=== PATIENT | female | born 1990 | race Caucasian/White ===

== ENCOUNTER 2022-09-04 12:15 | Outpatient (CLI) | payer MEDICAID, SELFPAY ==
[2022-09-04 09:22] LABS: Cholesterol* 206 mg/dL (90-199)
[2022-09-04 09:23] LABS: Glucose* 97 mg/dL (60-115); HDL Cholesterol* 42 mg/dL (>=50); LDL Cholesterol Calculated 142 mg/dL (<100); Triglycerides* 110 mg/dL (40-149)
== END 2022-09-04 12:16 | disposition home or self-care (01) ==
PROVIDERS: Visit Provider Family Medicine
DX: Z13.6 Encounter for screening for cardiovascular disorders (principal); Z13.1 Encounter for screening for diabetes mellitus
CPT/HCPCS: 80061; 82947

== ENCOUNTER 2022-09-09 23:40 | Emergency (ER) | payer MEDICAID, SELFPAY ==
[2022-09-09 23:57] VITALS: BP 117/85; PULSE 86; RESP 18; TEMP 36.5; O2SAT 96; BMI 27.4
--- NOTE | 2022-09-10 00:18 | CRLHL7_ITS ---
For Patients: As a result of the Century Cures Act, medical imaging exams and procedure reports are released immediately into your electronic medical record. You may view this report before your referring provider. If you have questions, please contact your health care provider. INDICATION: Right upper quadrant abdominal pain. TECHNIQUE: Ultrasound abdomen limited. Sonographic images of the right upper quadrant were obtained using escobar-scale and color Doppler images. COMPARISON: None. FINDINGS: Liver: Normal in size and echotexture. No suspicious masses. No intrahepatic biliary ductal dilatation. Gallbladder: Small mobile stones. Normal wall thickness. No pericholecystic fluid. Negative sonographic Lomax`s sign. Common bile duct: 5 mm. Pancreas: Unremarkable. Right kidney: Normal in size. Normal echotexture and cortex. No suspicious masses, stones, or hydronephrosis. Vasculature: Proximal abdominal aorta and IVC are unremarkable. IMPRESSION: 1. Cholelithiasis without evidence of cholecystitis. 2. Remainder of right upper quadrant ultrasound is unremarkable. Dictated by El Hall MD @ 09/10/2022 1:30:03 AM (Electronically Signed)
--- NOTE | 2022-09-10 00:23 | ED_ITS ---
HPI - General Adult General Chief complaint: Neck Injury/Pain Stated complaint: Pain on right side/neck, trouble breathing Time Seen by Provider: 09/09/22 23:54 Source: patient Mode of arrival: ambulatory Limitations: no limitations History of Present Illness HPI narrative: With no prior history of gallbladder disease or pancreatitis and no family history of gallbladder disease presents with vague right shoulder and neck ache for the past 12 hours. It radiates into the right upper quadrant of the abdomen. She reports fever over the weekend though she did not localize the source. She has had anorexia through the day, no tim nausea or vomiting. She admits that she has been quite distracted by a Halloween and needing to take her children on outings. No blood in her stools, no blood in her urine. No d iarrhea. She states that she has had half of 1 alcoholic beverage in the last few days, no excessive use of alcohol. No injury or trauma to the neck or shoulder. Pain is worsened by taking deep breaths, specifically making the pain worse in the right upper quadrant. Denies chance of . Has tried taking Tylenol x2 with some mild temporary improvement in her pain. Reports that the pain is worsening significantly in the last few hours. Prior history of similar episodes. Past medical history notable for depression and anxiety, also reports a remote history of ulcerative colitis but not on any treatment.. She reports that she is prescribed fluoxetine by a Psychiatry in the past and has been out of this as her provider moved on to a new practice rather quickly. She has upcoming appointment with her primary care provider to restart this medication soon. Denies any prior surgeries. No family history of gallbladder or significant GI disease. Socially, she is a smoker, denies significant alcohol use, pertinent travel. She denies any personal or family history of anesthesia complications, no personal or family history of bleeding or blood clotting disorders. Does not take anticoagulants. ROS is notable for the musculoskeletal and GI symptoms as described above, otherwise denies times 12 systems today. Related Data Home Medications Medication Instructions Recorded Confirmed fluoxetine 20 mg capsule mg PO DAILY 09/09/22 Allergies Allergy/AdvReac Type Severity Reaction Status Date / Time No Known Drug Allergies Allergy Verified 09/05/22 12:32 [facility] Medical History (Updated 09/10/22 @ 02:37 by Selina Arellano MD) Depression with anxiety Ulcerative colitis Social History Smoking Status: Current every day smoker What tobacco products do you use: cigarettes How often do you have a drink containing alcohol: monthly or less AUDIT-C Alcohol total score: 1 Non-prescribed substance use: denies use Exam Const: Vital Signs, click to edit/add: Vital Signs - 24 hr 09/09/22 23:57 Temperature 97.7 F Pulse Rate [Pulse Oximeter] 86 Respiratory Rate 18 Blood Pressure [Le ft Upper Arm] 117/85 Pulse Oximetry 96 Oxygen Delivery Me thod Room Air Documenting provider has reviewed patient's vital signs: yes Common normals: no apparent distress General appearance: cooperative, comfortable and well kempt HENMT: Common normals: normocephalic Head and scalp: normocephalic Mouth: oral and palatal mucosa normal Throat: posterior oropharynx normal Eye: Common normals: PERRL, conjunctivae normal and no scleral icterus Conjunctiva: conjunctiva(e) normal Pupil: PERRL Neck & C-Spine: Common normals: full ROM, no lymphadenopathy, supple and thyroid normal Thyroid: thyroid normal Resp: Common normals: normal respiratory effort, no use of accessory muscles and clear to auscultation bilaterally Effort & inspection: able to speak in complete sentences Auscultation: clear to auscultation bilaterally Cardio: Common normals: regular rate, regular rhythm, S1 normal heart sound, S2 normal heart sound, no murmurs and peripheral pulses 2+ throughout Rate: regular rate Rhythm: regular rhythm Heart sounds: S1 normal and S2 normal Peripheral pulses: pulses 2+ throughout GI: Other: Abdomen appears benign, nondistended. Bowel sounds are normoactive in all 4 quadrants. She is exquisitely tender to the right upper quadrant with some mild guarding. There is no hepatosplenomegaly. No obvious masses or hernias. : Common normals: no CVA tenderness Bladder/kidney exam: no CVA tenderness Back & Pelvis: Common normals: no CVA tenderness and thoracic and lumbar spine normal to inspection Extremity: Common normals: normal to inspection, full ROM and no pedal edema Neuro: Speech: speech normal Motor exam: strength 5/5 throughout, no tremor noted and no movement abnormalities noted Psych: Common normals: thought process normal Appearance: well kempt Attitude: engaged Activity/motor behavior: appropriate eye contact Mood and affect: euthymic mood Thought process: normal thought process Insight: insight good Judgement: judgment good Skin: Common normals: no rashes or lesions noted General skin exam: no rashes or lesions noted Course Vital Signs Vital signs: Initial Vital Signs Temperature 97.7 F 09/09/22 23:57 Temperature Source Temporal Artery Scan 09/09/22 23:57 Pulse Rate 86 09/09/22 23:57 Respiratory Rate 18 09/09/22 23:57 Blood Pressure 117/85 09/09/22 23:57 Blood Pressure Mean 95 09/09/22 23:57 Blood Pressure Position Sitting 09/09/22 23:57 Pulse Oximetry 96 09/09/22 23:57 Oxygen Delivery Method 09/09/22 23:57 Vital Signs Temperature 97.7 F 09/09/22 23:57 Pulse Rate 86 09/09/22 23:57 Respiratory Rate 18 09/09/22 23:57 Blood Pressure 117/85 09/09/22 23:57 Pulse Oximetry 96 09/09/22 23:57 Oxygen Delivery Method 09/09/22 23:57 Temperature 97.7 F 09/09/22 23:57 Pulse Rate 86 09/09/22 23:57 Respiratory Rate 18 09/09/22 23:57 Blood Pressure 117/85 09/09/22 23:57 Pulse Oximetry 96 09/09/22 23:57 Oxygen Delivery Method 09/09/22 23:57 Medical Decision Making MDM Narrative Medical decision making narrative: Stable vital signs reviewed. No signs of sepsis. Strong suspicion for gallbladder disease based on presentation, age, demographics. Request pain management, will place IV, give 0.5 mg of IV Dilaudid and 4 mg of Zofran. Typical laboratory studies to investigate for intra-abdominal concerns as well as urinary and potentially COVID. Right upper quadrant ultrasound ordered. Differential diagnosis also includes pancreatitis, hepatitis, low suspicion for pulmonary embolism, musculoskeletal etiology, colitis or other etiology. Awaiting laboratory studies Update 0240: Pain improved with IV medication, labs reviewed and reassuring. Minimally elevated CRP but normal liver function, normal bilirubin. Ultrasound reviewed, some gallstones are present but no duct dilation, wall thickening or signs of cholecystitis. This is reassuring as well. I do suspect that her symptoms are related to gallstones and/or biliary dyskinesia but there are no signs of significant dysfunction today. She is not endorsing any chest pain, sh ortness of breath, does not have any tachycardia or risk factors for DVT, do not recommend chest CT or further workup regarding her symptoms. Discussed likely gallstone etiology and alarm symptoms that would warrant further workup in followup. She already has a follow-up appointment with her primary care provider within the next couple of days. May need a HIDA scan if she continues to have repeat episodes. Lab Data Lab results reviewed: Yes I reviewed the patient's lab results Labs: Lab Results 09/10/22 09/10/22 09/10/22 Range/Units 00:40 00:40 00:40 WBC 7.60 (4.50-11.00) K/uL RBC 4.63 (4.00-5.20) m/uL Hgb 13.2 (12.0-16.0) gm/dL Hct 39.4 (33.0-51.0) % MCV 85 (80-100) fL MCH 29 (26-34) pg MCHC 34 (32-36) gm/dL RDW Coeff of Luis Enrique 12.5 (11.5-15.5) % Plt Count 379 (140-440) K/uL Neut % (Auto) 50.7 (42.0-72.0) % Lymph % (Auto) 38.9 (20-44) % [place] % (Auto) 8.4 (0.0-11.0) % Eos % (Auto) 1.7 (0.0-7.0) % Baso % (Auto) 0.0 (0.0-3.0) % Neut # (Auto) 3.85 (1.7-7.0) K/uL Lymph # (Auto) 2.96 H (0.90-2.90) K/uL [place] # (Auto) 0.60 (0.00-0.90) K/UL Eos # (Auto) 0.13 (0.00-0.50) K/uL Baso # (Auto) 0.00 (0.00-0.30) K/uL Abs Immat Gran (auto) 0.02 (0.00-0.30) K/uL Sodium 144 (135-149) mmol/L Potassium 3.6 (3.6-5.1) mmol/L Chloride 109 (96-114) mmol/L Carbon Dioxide 21 (20-32) mmol/L BUN 11 (5-24) mg/dL Creatinine 0.7 (0.5-1.5) mg/dL Estimated Creat Clear 92.10 Estimated GFR 119 ml/min Glucose 110 (60-115) mg/dL Calcium 9.0 (8.4-10.6) mg/dL Total Bilirubin 0.2 (0.1-1.5) mg/dL AST 24 (12-35) U/L ALT 21 (4-35) U/L Alkaline Phosphatase 75 (40-150) U/L C-Reactive Protein 3.0 H (0.5-1.0) mg/dL Total Protein 7.7 (6.0-8.3) g/dL Albumin 4.6 (3.3-5.0) g/dL Lipase 81 (23-300) U/L HCG, Qual (Negative) Urine Color (Yellow) Urine Appearance (Clear) Urine pH (5.0-8.5) Ur Specific [place] (1.000-1.030) Urine Protein (Negative) Urine Glucose (UA) (Negative) Urine Ketones (Negative) Urine Blood (Negative) Urine Nitrite (Negative) Urine Bilirubin (Negative) Urine Urobilinogen (0.2-1.0) Ur Leukocyte Esterase (Negative) Urine RBC (0-2) Urine WBC (0-5) Ur Squamous Epith Cells (None-Few) Amorphous Sediment (None) Urine Bacteria (None) SARS-CoV-2 (PCR) Negative SARS-CoV-2 (Negative) Influenza Type A (PCR) Negative PCR FLU A (Negative) Influenza Type B (PCR) Negative PCR FLU B (Negative) RSV (PCR) Negative PCR RSV (Negative) 09/10/22 Range/Units 02:20 WBC (4.50-11.00) K/uL RBC (4.00-5.20) m/uL Hgb (12.0-16.0) gm/dL Hct (33.0-51.0) % MCV (80-100) fL MCH (26-34) pg MCHC (32-36) gm/dL RDW Coeff of Luis Enrique (11.5-15.5) % Plt Count (140-440) K/uL Neut % (Auto) (42.0-72.0) % Lymph % (Auto) (20-44) % [place] % (Auto) (0.0-11.0) % Eos % (Auto) (0.0-7.0) % Baso % (Auto) (0.0-3.0) % Neut # (Auto) (1.7-7.0) K/uL Lymph # (Auto) (0.90-2.90) K/uL [place] # (Auto) (0.00-0.90) K/UL Eos # (Auto) (0.00-0.50) K/uL Baso # (Auto) (0.00-0.30) K/uL Abs Immat Gran (auto) (0.00-0.30) K/uL Sodium (135-149) mmol/L Potassium (3.6-5.1) mmol/L Chloride (96-114) mmol/L Carbon Dioxide (20-32) mmol/L BUN (5-24) mg/dL Creatinine (0.5-1.5) mg/dL Estimated Creat Clear Estimated GFR ml/min Glucose (60-115) mg/dL Calcium (8.4-10.6) mg/dL Total Bilirubin (0.1-1.5) mg/dL AST (12-35) U/L ALT (4-35) U/L Alkaline Phosphatase (40-150) U/L C-Reactive Protein (0.5-1.0) mg/dL Total Protein (6.0-8.3) g/dL Albumin (3.3-5.0) g/dL Lipase (23-300) U/L HCG, Qual Negative (Negative) Urine Color Yellow (Yellow) Urine Appearance Clear (Clear) Urine pH 6.0 (5.0-8.5) Ur Specific [place] 1.020 (1.000-1.030) Urine Protein Negative (Negative) Urine Glucose (UA) Negative (Negative) Urine Ketones Negative (Negative) Urine Blood Negative (Negative) Urine Nitrite Negative (Negative) Urine Bilirubin Negative (Negative) Urine Urobilinogen 0.2 (0.2-1.0) Ur Leukocyte Esterase 1+ A (Negative) Urine RBC 0-2 (0-2) Urine WBC 2-5 (0-5) Ur Squamous Epith Cells Few (None-Few) Amorphous Sediment Few A (None) Urine Bacteria Moderate A (None) SARS-CoV-2 (PCR) (Negative) Influenza Type A (PCR) (Negative) Influenza Type B (PCR) (Negative) RSV (PCR) (Negative) Imaging Data US - abdomen: Radiologist's impression: Gallstones present but no wall thickening or signs of cholecystitis. Discharge Plan Discharge Clinical Impression: Gallstone Patient Disposition: Home, Self-Care Condition: Improved Instructions: Gallstones (ED) Additional Instructions: I suspect that your abdominal pain and referred pain up to the shoulder area are from gallstones. The ultrasound does not show any signs of infection and the blood work is reassuring as well. The blood work also does not show any signs of pancreatitis or liver inflammation. As we discussed, this could also be an early flare up of ulcerative colitis or a sign of a viral infection. Since her vital signs are normal and her lung exam is reassuring, I do not recommend additional workup to look for a blood clot in the lungs. This could be reconsidered if you start to have changing respiratory symptoms. Unfortunately, those that have gallstones may have repeat episodes similar to what you are currently experiencing. I would recommend a bland, diet high in liquids with no alcohol for the next week. If you continue have episodes like this, talked to her primary care provider about getting a HIDA scan to look more closely at the gallbladder function. If your pain worsened significantly and is specially accompanied by vomiting and fevers, this could be a sign of a missed infection and I would want you to come back to the emergency department. For most people, other symptoms improve in 24-48 hours. It is okay to use Tylenol and/or ibuprofen as needed for pain. Okay to return to work and usual activities today. Activity Level: No Restrictions Discharge Diet: Low Fat/Low Cholesterol Prescriptions: No Action fluoxetine 20 mg capsule PO DAILY Label Comments: TAKE 1 CAPSULE BY MOUTH DAILY Follow Up/Referrals: Generic,Amb Provider [Staff Physician] - Stand Alone Forms: [facility] Info Instructions
[2022-09-10] MEDS: ONDANSETRON 2 MG/ML inj 4 MG IVP (00:39)
[2022-09-10] MEDS: HYDROmorphone 0.5 mg/0.5 ml inj IVP (00:39)
[2022-09-10 00:51] LABS: Eosinophils Absolute Auto 0.13 K/uL (0.00-0.50); Eosinophils Percent Auto 1.7 % (0.0-7.0); Hematocrit 39.4 % (33.0-51.0); Hemoglobin* 13.2 gm/dL (12.0-16.0); Immature Granulocytes Abs Auto 0.02 K/uL (0.00-0.30); Lymphocytes Absolute Auto 2.96 K/uL (0.90-2.90); Lymphocytes Percent Auto 38.9 % (20-44); Mean Corpuscular HGB Conc 34 gm/dL (32-36); Mean Corpuscular Hemoglobin 29 pg (26-34); Mean Corpuscular Volume 85 fL (80-100); Monocytes Percent Auto 8.4 % (0.0-11.0); Neutrophils Absolute Auto 3.85 K/uL (1.7-7.0); Neutrophils Percent Auto 50.7 % (42.0-72.0); Platelet Count* 379 K/uL (140-440); RDW Coefficient of Variation % 12.5 % (11.5-15.5); Red Blood Count 4.63 m/uL (4.00-5.20)
--- OUTSIDE RECORDS SUMMARY | 2022-09-10 00:54 | XMS_ITS | Encounter Summary ---
:1990 Author Organization [facility] Address [address] [place] [address] Care Team Providers Name Role Phone Unavailable Primary Care Provider Unavailable Reason for Visit Outpatient (Routine) - Closed Specialty Diagnoses / Procedures Referred By Contact Refer red To Contact Diagnoses Management Contraceptive Saray [facility] Procedures Injection Visit - Depo-Provera [address], [place] [address] Referral ID Status Reason Start Date Expiration Date Visits Requ ested Visits Authorized [id number] Closed 08/09/2021 08/09/2022 1 1 Encounter Details Date Type Department Care Team Description 10/29/2021 Procedure visit Department of Axel Lane M.D. [address] [place] [address] Management Contraceptive (Primary Dx); Obstetrics and Katalina Chong L.P.N. [address] [place] [address] Management Contraceptive [place]necology [address] [place] [id number] Social History Tobacco Use Types Packs/Day Years Used Date Smoking Tobacco: Every Day Cigarettes 0.3 Smokeless Tobacco: Never Tobacco Cessation: Ready to Quit: No; Co unseling Given: Yes Alcohol Use Standard Drinks/Week Comments Not Currently 0 (1 standard drink = 0.6 oz pure alcoho l) Alcohol Habits Answer Date Recorded How often do you have a drink containing alcohol? Monthly or less 08/15/2022 How many drinks containing alcohol do you have on a 1 or 2 08/15/2022 typical day when you are drinking? How often do you have six or more drinks on one Never 08/15/2022 occasion? Social Isolation Answer Date Recorded In a typical week, how many times do you talk on the Once a week 08/15/2022 phone with family, friends, or neighbors? How often do you get together with friends or relatives? Onc e a week 08/15/2022 How often do you attend rastafarian or muslim services? Never 08/15/2022 Do you belong to any clubs or organizations such as No 08/15/2022 rastafarian groups, unions, fraternal or athletic groups, or school groups? How often do you attend meetings of the clubs or Never 08/15/2022 organizations you belong to? Are you now , , , , never Nev er 08/15/2022 or living with a partner? Physical Activity Answer Date Recorded On average, how many days per week do you engage in moderate to 0 days 08/15/2022 strenuous exercise (like walking fast, running, jogging, dancing, swimming, biking, or other activities that cause a light or heavy sweat)? On average, how many minutes do you engage in exercise at th is 0 min 08/15/2022 level? Stress Answer Date Recorded Do you feel stress - tense, restless, nervous, or anxious, o r Very much 08/15/2022 unable to sleep at night because your mind is troubled all the time - these days? Financial Resource Strain Answer Date Recorded How hard is it for you to pay for the very basics like Somew hat hard 08/15/2022 food, housing, medical care, and heating? Intimate Partner Violence Answer Date Recorded Within the last year, have you been afraid of your partner o r Yes 08/15/2022 ex-partner? Within the last year, have you been humiliated or emotionall y Yes 08/15/2022 abused in other ways by your partner or ex-partner? Within the last year, have you been kicked, hit, slapped, or Yes 08/15/2022 otherwise physically hurt by your partner or ex-partner? Within the last year, have you been raped or forced to have any No 08/15/2022 kind of sexual activity by your partner or ex-partner? Food Insecurity Answer Date Recorded Within the past 12 months, you worried that your food Someti mes true 08/15/2022 would run out before you got money to buy more. Within the past 12 months, the food you bought just Sometime s true 08/15/2022 didn't last and you didn't have money to get more. Transportation Needs Answer Date Recorded In the past 12 months, has lack of transportation kept you f rom No 08/15/2022 medical appointments or from getting medications? In the past 12 months, has lack of transportation kept you f rom No 08/15/2022 meetings, work, or getting things needed for daily living? Housing Stability Answer Date Recorded In the last 12 months, was there a time when you were not ab le Yes 08/15/2022 to pay the mortgage or rent on time? In the last 12 months, how many places have you lived? 1 08/15/2022 In the last 12 months, was there a time when you did not hav e a No 08/15/[address] sleep or slept in a correction (including now)? Education Answer Date Recorded What is the highest level of school Bachelor's degree (e.g., BA, AB, 04/13/2021 you have completed or the highest BS) degree you have received? Sex Assigned at Date Recorded Female 08/04/2021 7:52 PM CDT documented as of this encounter Last Filed Vital Signs Vital Sign Reading Time Taken Comments Blood Pressure 114/68 10/29/2021 1:19 PM ADJUSTMENT CLERK Pulse - - Temperature - - Respiratory Rate - - Oxygen Saturation - - Inhaled Oxygen Concentration - - Weight 64.9 kg (143 lb 1.3 oz) 10/29/2021 1:19 PM ADJUSTMENT CLERK Height - - Body Mass Index 25.51 03/07/2021 2:46 PM CDT documented in this encounter Progress Notes Katalina Chong, L.P.N. - 10/29/2021 1:15 PM CST Date of last gynecologic examination from a [facility] prescriber: 08-09-2021 Date of last documented prescription for Depo-Provera?? (Medroxyprogesterone) from a [facility] prescriber: 08-09-2021 Date of last Depo-Provera?? (Medroxyprogesterone) injection: 08-09-2021 Today's date is within injection time frame as ordered by healthcare provider. Patient denies any medical risk factors or concerns regarding medication. Patient instructed to return for injection on/between: January 14- Patient is able to teach back instructions. STMENT CLERK documented in this encounter Plan of Treatment Upcoming Encounters Date Type Specialty Care Team Description 10/08/2022 Office Visit Obstetrics and Gynecology Kamini Lane M.D. [address] [phone] (Wo rk) documented as of this encounter Visit Diagnoses Diagnosis Management Contraceptive - Primary documented in this encounter Administered Medications Inactive Administered Medications - up to 3 most recent administrations Medication Order MAR Action Action Date Dose Rate Site medroxyPROGESTERone Given 07/09/2022 150 mg Right Ventrogluteal injection 150 mg 4:04 PM CDT 150 mg, intramuscular, Every 12 weeks, First dose on 10/29/21 at 1315, For 4 doses Given 04/12/2022 11:33 AM CDT 150 mg Righ t Ventrogluteal Given 01/18/2022 4:10 PM ADJUSTMENT CLERK 150 mg Right Ventrogluteal documented in this encounter Additional Health Concerns Assessment Noted Time PHQ-9 Depression Total Score: 10 08/09/2021 9:11 AM CD T documented as of this encounter
--- OUTSIDE RECORDS SUMMARY | 2022-09-10 00:54 | XMS_ITS | Encounter Summary ---
:1990 Author Organization [facility] Address [address] [place] [address] Care Team Providers Name Role Phone Unavailable Primary Care Provider Unavailable Reason for Referral Outpatient (Routine) - Authorized Specialty Diagnoses / Procedures Referred By Contact Refer red To Contact Obstetrics and Diagnoses High Risk Human Papillomavirus Deoxyribonucleic Acid Test Positive Cervix MARLENE Clayton [facility] Gynecology [place] [address] [place] [phone] Referral ID Status Reason Start Date Expiration Date Visits V isits Requested Authorized [id number] Authorized 08/26/2022 08/25/2025 1 1 Reason for Visit Reason Comments Gynecologic Exam 1yr pap retest Outpatient (Routine) - Closed Specialty Diagnoses / Procedures Referred By Contact Refer red To Contact Obstetrics and Diagnoses High Risk Human Papillomavirus Deoxyribonucleic Acid Test Positive Cervix MARLENE Clayton [facility] Gynecology [place] [address] [place] [address] Referral ID Status Reason Start Date Expiration Date Visits Requ ested Visits Authorized [id number] Closed 08/21/2021 08/21/2022 1 1 Encounter Details Date Type Department Care Team Description 08/19/2022 Office Visit Department of [place], Screening For Venereal Disease (Primary Dx); Obstetrics and [place]ony So High Risk Human Papillomavirus Deoxyribo nucleic Acid Test Positive Cervix; Gynecology in [address] Depressive Dis order; [address] Anxiety; [address] [place] Tobacco [place] [phone] Social History Tobacco Use Types Packs/Day Years Used Date Smoking Tobacco: Every Day Cigarettes 0.3 Smokeless Tobacco: Never Alcohol Use Standard Drinks/Week Comments Not Currently [...] week 08/15/2022 How often do you attend jew or buddhist services? Never 08/15/2022 Do you belong to any clubs or organizations such as No 08/15/2022 jew groups, unions, fraternal or athletic groups, or [...] place to sleep or slept in a assisted (including now)? Education Answer Date Recorded What is the highest level of school Bachelor's degree (e.g., BA, AB, 04/13/2021 you have completed or the highest BS) degree you have received? Sex Assigned at Date Recorded Female 08/04/2021 7:52 PM CDT documented as of this encounter Last Filed Vital Signs Vital Sign Reading Time Taken Comments Blood Pressure 98/64 08/19/2022 2:29 PM CDT Pulse - - Temperature - - Respiratory Rate - - Oxygen Saturation - - Inhaled Oxygen Concentration - - Weight 64.9 kg (143 lb 1.3 oz) 08/19/2022 2:29 PM CDT Height - - Body Mass Index 25.51 03/07/2021 2:46 PM CDT documented in this encounter Progress Notes Jose Clayton M.D. 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 female who presents for follow up of HR HPV. She underwent pap smear on 08/09/2021 and the pap was NILM but HPV testing was positive for HR HPV, not type 16 or 18. I cannot find pap smears in her medical records prior to that time. She smokes and has been unsuccessful with her attempts at quitting in the past. She has tried Chantix, but she did not take her evening dose regularly. She has tried using nicotine patches and other things. She has quit during but restarted every time after delivery, and has only quit for a few days maximum when she is not been . Currently, she has unmanaged mood symptoms. She is on Prozac with some improvement in symptoms but needs to go up on her dose and her psychiatrist is currently out on a leave. She plans to make an appointment with her PCP to discuss increasing her dose. She states that she has a stressful home life and work life and always seems to think that she will quit once this stress improves, but it never seems to improve. She has celiac disease but is not on any immunocompromising medications at this time. She requests gonorrhea and chlamydia testing today, as well. The patient's allergies and current medications were reviewed and updated as appropriate. SYSTEMS REVIEW Constitutional: Positive for fatigue. - Negative for fever, weight gain of more than 10 pounds and weight loss of more than 10 pounds. Skin: - Negative for skin rash, change in mole or skin spot, breast lump and nipple discharge. Eyes: - Negative for visual problems. ENT: - Negative for difficulty hearing and sinus congestion. Respiratory: - Negative for coughing up mucus (phlegm), dry cough, shortness of breath and wheezing. Cardiovascular: - Negative for chest pain, pressure or tightness and rapid or fluttering heart beat. Gastrointestinal: - Negative for abdominal (belly) pain or cramping, constipation, diarrhea, heartburn, nausea and vomiting. Genitourinary: - Negative for abnormal vaginal bleeding, incontinence, difficulty urinating, pain with urination and menses change or abnormal. Musculoskeletal: - Negative for pain or stiffness in the joints and back pain. Neurological: Positive for numbness or shooting pain in hands, arms, legs, or feet and headaches. - Negative for loss of balance or tendency to fall easily. Psychiatric/Behavioral: Positive for excessive daytime sleepiness/tiredness, feeling down, depressed, or hopeless over past two weeks and feeling nervous, anxious, or on edge in past two weeks. - Negative for sleep disturbance. The following systems were negative: Skin, Eyes, ENT, Respiratory, Cardiovascular, Gastrointestinal,Genitourinary, Hematologic, Musculoskeletal OBJECTIVE Vitals: 08/19/22 1429 BP: 98/64 Weight: 64.9 kg PHYSICAL EXAM Constitutional General: She is not in acute distress. Appearance: Normal appearance. She is well-developed. Exam conducted with a painter helper present. Genitourinary Urethral meatus normal. No lesions in the vagina. Right Labia: No tenderness, lesions or skin changes. Left Labia: No tenderness, lesions or skin changes. No vaginal erythema or ulceration. Right Adnexa: not tender and no mass present. Left Adnexa: not tender and no mass present. No cervical lesion. Uterus is not enlarged, tender or irregular. No urethral tenderness or mass present. Bladder is not tender. Pelvic exam was performed with patient in the lithotomy position. HENT Head: Normocephalic and atraumatic. Eyes General: Vision grossly intact. Pulmonary Effort: Pulmonary effort is normal. No respiratory distress. Neurological Mental Status: She is alert. Mental status is at baseline. Skin Findings: No lesion or rash. Psychiatric Mood and Affect: Mood normal. Behavior: Behavior normal. ASSESSMENT / PLAN Bri Finch is a 32 y.o. female who presents for follow up of positive HR HPV testing with normal pap smear 1 year ago. #1 High Risk Human Papillomavirus Deoxyribonucleic Acid Test Positive Cervix Overview: 08/09/2021: Pap NILM, HR HPV positive, not 16 or 18 08/19/2022: Pap and HPV testing pending. Plan: Co-testing July or August 2022 Orders: - Obstetrics and Gynecology office visit (clinic) - ThinPrep w/HPV Co-Test Screen - HPV with Genotyping, PCR, ThinPrep #2 Screening For Venereal Disease - Chlamydia / Gonorrhoeae Amplified RNA #3 Depressive Disorder Overview: Had been seeing a psychiatrist. She also sees a therapist. She has stress at home and work that contribute to her symptoms. She is currently on Prozac with improvement in symptoms, but she would like to increase her dose. She will make an appointment with her PCP to discuss this. #4 Anxiety Overview: On Prozac 20 mg daily and desires to increase her dose. She will see her PCP for this while her psychiatrist is out on leave. She also sees a therapist. #5 Tobacco Use Overview: Still smoking but has been thinking about quitting recently. She has used Chantix and nicotine patches in the past without success in attempts to try to quit. Discussed that tobacco use makes it harderfor the immune system to clear the HPV virus. However, she has depression and anxiety in his had mood symptoms recently. Recommended that she work on managing these before trying to quit smoking. If she would like any assistance with smoking cessation, she can discuss this with her psychiatrist or letme know. Followup: We will be in touch with results. She should follow up in 1-2 years for annual examination. documented in this encounter Miscellaneous Notes Addendum Note - Jose Clayton M.D. - 08/19/2022 2:30 PM CDT Addended by: JOSE CLAYTON on: 08/26/2022 01:12 PM Modules accepted: Orders documented in this encounter Plan of Treatment Upcoming Encounters Date Type Specialty Care Team Description 10/08/2022 Office Visit Obstetrics and Gynecology Kamini Clayton M.D. [address] [place], [place] [phone] (Wo rk) Scheduled Referrals Name Type Priority Associated Diagnoses Order S chedule Obstetrics and Outpatient Routine High Risk Human Expected: Gynecology office Referral Papillomavirus 08/26/20 visit (clinic) Deoxyribonucleic Acid (Erin roximate), Test Positive Cervix Expires : 11/26/2023 documented as of this encounter Procedures Procedure Name Priority Date/Time Associated Diagnosis Comme nts THINPREP W/HPV Routine 08/19/2022 3:03 High Risk Human Results for this CO-TEST SCREEN PM CDT Papillomavirus procedure a re in Deoxyribonucleic Acid the re sults Test Positive Cervix section . HPV WITH Routine 08/19/2022 3:02 High Risk Human Results f or this GENOTYPING, PCR, PM CDT Papillomavirus procedure are in THINPREP Deoxyribonucleic Acid the re sults Test Positive Cervix section . CHLAMYDIA/GONORRHO Routine 08/19/2022 3:02 Screening For Vener eal Results for this EAE AMPLIFIED RNA PM CDT Disease procedure are in the results section. documented in this encounter Results (ABNORMAL) ThinPrep w/HPV Co-Test Screen (08/19/2022 3:03 PM CDT) Component Value Ref Test Analysis Performed Pathologis t Range Method Time At Signature (A) 08/26/2022 [facility] 12:16 PM CDT Report Fazal Mckinney MD 08/26/2022 [facility] electronically 12:16 PM signed by CDT I verify that I have examined all relevant slides/materials for the specimen(s) and rendered or confirmed the diagnosis. (A) Gross Description Received specimen 08/26/2022 [facility] Y in a ThinPrep 12:16 PM vial. (A) CDT Pap Test Source Cervical/Endocervi 08/26/2022 [facility] brandon (A) 12:16 PM CDT Clinical History previous abnormal 08/26/2022 [facility] (A) 12:16 PM CDT Menstrual lmp (A) 08/26/2022 [facility] Status(LMP, PM, 12:16 PM ) CDT Hormone Depoprovera (A) 08/26/2022 [facility] Therapy/Contracep 12:16 PM tives CDT Interpretation Cervical/Endocervical ??(ThinPrep): 08/26/2022 [facility] 12:16 PM Satisfactory for Evaluation CDT Epithelial Cell Abnormality Atypical glandular cells, not otherwise specified ? Patients with this diagnosis are at increased risk fo r a clinically significant lesion including adenocarcinoma in situ, high grade squamous intraepithelial lesion, invasive cervical carcinoma, or endometrial carcinoma. High Risk HPV: ??Positive Positive for High Risk HPV by nucleic acid amplification. Positive for one or more of the following High Risk HPV types: 16, 18, 31, 33, 35, 39, 45, 51, 52, 56, 58, 59, 66, and 68. HPV Type 16: ??Negative HPV Type 18/45: ??Negative (A) Specimen Anatomical Collection Method Collection Time Receive d Time (Source) Location / / Volume Laterality Thin Prep Vial 08/19/2022 3:03 PM 022 9:04 (Cervix/Endocerv CDT AM CDT ix) Narrative This result has an attachment that is no t available. Jose Clayton M.D. LAB PAP PATHDX ORDERABLES Performing Organization Address City/State/ZIP Code Phon e Number [facility]- [address] [place] [address] [place] [address] (ABNORMAL) HPV with Genotyping, PCR, ThinPrep (08/19/2022 3:02 PM CDT) [facility] Method Time Signature HPV with Positive (A) Negative 08/26/2022 [facility] Genotyping, 10:28 AM CDT ThinPrep, PCR Comment: Positive for high risk HPV by nucleic ac id amplification. Positive for one or more of the following high risk types: 16, 18, 31, 33, 35, 39, 45, 51, 52, 56, 58, 59, 66, and 68. See genotyping result. HPV High Risk type 16, PCR Negative Negative 08/26/2022 10 :28 AM CDT [facility] HPV High Risk type 18/45, PCR Negative Negative 08/26/2022 10:28 AM CDT [facility] Specimen Anatomical Collection Method Collection Time Receive d Time (Source) Location / / Volume Laterality 08/19/2022 3:02 PM 9:04 CDT AM CDT Jose Clayton M.D. LAB MICROBIOLOGY - GENERAL O MICK Performing Organization Address City/[facility] Phon e Number [facility]- [address] [place] [phone] [place] [address] [address] Chlamydia / Gonorrhoeae Amplified RNA (08/19/2022 3:02 PM CDT) [facility] Method Time Signature Source Swab, Vagina 08/20/2022 [facility] 2:53 AM CDT Chlamydia Negative Negative 08/20/2022 [facility] trachomatis 2:53 AM CDT amplified RNA Source Swab, Vagina 08/20/2022 [facility] 2:53 AM CDT Neisseria Negative Negative 08/20/2022 [facility] gonorrhoeae 2:53 AM CDT amplified RNA Specimen Anatomical Collection Method Collection Time Receive d Time (Source) Location / / Volume Laterality Swab (Vagina) 08/19/2022 3:02 PM 08/19/20 22 7:39 CDT PM CDT Jose Clayton M.D. LAB MICROBIOLOGY - GENERAL O MICK Performing Organization Address City/[facility] Phon e Number [facility]- [address] [place] [phone] [place] [address] [address] documented in this encounter Visit Diagnoses Diagnosis Screening For Venereal Disease - Primary High Risk Human Papillomavirus Deoxyribo nucleic Acid Test Positive Cervix Depressive Disorder Anxiety Tobacco Use documented in this encounter Additional Health Concerns Assessment Noted Time PHQ-9 Depression Total Score: 8 08/19/2022 2:30 PM CDT documented as of this encounter
--- OUTSIDE RECORDS SUMMARY | 2022-09-10 00:54 | XMS_ITS | Clinical Summary ---
:1990 Author Organization [email or web address] [place] [address] Care Team Providers Name Role Phone Pcp, No Primary Care Provider Unavailable Allergies Active Allergy Reactions Severity Noted Date Comments House Dust Mite Other - Describe In Comment Field 05/11 Ragweed Itching 06/07/2015 Medications Medication Sig Dispensed Refills Start Date End Date Status PNV cmb#95-ferrous Take 1 Tablet by 0 Active fumarate-FA 28 mg iron- mouth once daily. 800 mcg tab escitalopram oxalate Take 1 Tablet (10 90 Tablet 0 06/21/2021 Active (LEXAPRO) 10 mg mg) by mouth tabletIndications: every morning. Depressive disorder, Normal labor and delivery Active Problems Problem Noted Date Normal labor and delivery 06/20/2021 39 weeks gestation of 06/19/2021 Third trimester bleeding 04/26/2021 Overview: Formatting of this note might be differe nt from the original. Admitted for observation early in the 3r d trimester for this for this. Cx 2 cm dilated. Occurred with intercourse. No bleeding since. Was given BMZ x 2 at that time. Advised to continue pelvic rest until 36 weeks. Anxiety 03/07/2021 Overview: Formatting of this note might be differe nt from the original. Discontinued Lexapro due to decreased fe paula movement. Managing symptoms effectively with therapy and no medication currently. Last PHQ-9 score was 8 on 04/03/2021, feeling of sadness with breast stimulat ion. It is less intense at this point. S he would like to restart a medication once she has the baby. She is not sure if she is going to breastfeed at this point. She will also schedule an appointment with psychiatry for shortly after baby is born. Depressive disorder 03/07/2021 Overview: Formatting of this note might be differe nt from the original. Discontinued Lexapro due to decreased fe paula movement. Managing symptoms effectively with therapy. Will start medication at the time of delivery. Heartburn 03/07/2021 Overview: Formatting of this note might be differe nt from the original. Symptoms are managed with omeprazole, th ough her symptoms have returned a little as of late. Last Assessment & Plan: Formatting of this note might be differe nt from the original. Tums has been ineffective. Initiated ome prazole 20 mg daily. Tobacco use 03/07/2021 Overview: Formatting of this note might be differe nt from the original. 5-6/day, and trying to quit. Ulcerative colitis 03/07/2021 Overview: Formatting of this note might be differe nt from the original. Under good control. Sees a gastroenterol ogist at [facility] for continued care. Chlamydial infection 11/23/2020 Immunizations Name Administration Dates Next Due Tuberculin (PPD) 12/29/2019, 12/14/2019 Family History Medical History Relation Name Comments No Known Problems Brother No Known Problems Father No Known Problems Maternal Grandfather No Known Problems Maternal Grandmother No Known Problems Mother No Known Problems Paternal Grandfather No Known Problems Paternal Grandmother No Known Problems Sister Relation Name Status Comments Brother Father Maternal Grandfather Maternal Grandmother Mother Paternal Grandfather Paternal Grandmother Sister Social History Tobacco Use Types Packs/Day Years Used Date Current Every Day Smoker Cigarettes 0.25 Sta rted: 11/10/2008 Smokeless Tobacco: Never Used Tobacco Cessation: Ready to Quit: No; Co unseling Given: Yes Alcohol Use Standard Drinks/Week Comments Not Currently 0 (1 standard drink = 0.6 oz pure alcoho l) Sex Assigned at Date Recorded Not on file Obstetrics History Para Term AB IAB SAB Ectopic Multiple Living Live Births 1 1 1 0 1 1 Date Outcome GA Total Labor/2nd/3rd Weight Sex Delivery Anes PTL Giovanna A 1 A5 Name Clin Labor 06/19 Term 39w 5h 31m 4h 30m/0h 2.87 kg F Vag-Spont Epidu Nanda 9 9 GURU Raue 2d 56m/0h 05m (6 lb ral ng R, BG tawana 5.2 oz) JOHN CAMARENA MD Complications: None Delivery Location: Hospital ([facility]) Last Filed Vital Signs Vital Sign Reading Time Taken Comments Blood Pressure 111/72 11/12/2021 2:15 PM 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 Pulse 86 11/12/2021 2:15 PM 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 Temperature 37.1 ??C (98.7 ??F) 11/12/2021 2:15 PM 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 Respiratory Rate 16 11/12/2021 2:15 PM 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 Oxygen Saturation 97% 11/12/2021 2:15 PM 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 Inhaled Oxygen Concentration - - Weight 67.6 kg (149 lb) 11/12/2021 2:15 PM 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 Height 157.5 cm (5' 2) 06/19/2021 5:20 PM CDT Body Mass Index 27.25 06/19/2021 5:20 PM CDT Plan of Treatment Health Maintenance Due Date Last Done Comments Tdap 2002 Depression screening for age 12+ 2003 BMI (ht and wt on same day) for age 18+ 2009 Hepatitis C screening for age 18-79 2009 Tetanus booster 2011 Pap test for age 21-65 2012 COVID-19 vaccine series (3 - Booster for 09/20/2021 021, 06/28/2021 Moderna series) Influenza for age 9-49 07/11/2022 Results Not on filefrom Last 3 Months Insurance Payer Benefit Plan / Subscriber ID Effective Dates Phone Addre ss Type Group JENNIFFER ABAD [place] [id number] 2021-Present [address] [place] [address] [employer] Employer [phone] [facility] [place] [address] Advance Directives Latest Code Status on File Code Status Date Activated Date Inactivated Comments Full Code 06/19/2021 5:26 PM 06/21/2021 1:33 PM Code Status Discussion: Not Discussed Full Code 04/26/2021 10:11 PM 04/27/2021 4:41 PM Code Status Discussion: Not Discussed Full Code 04/26/2021 10:11 PM 04/26/2021 10:11 PM Code Status Discussion: Not Discussed Care Teams 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
--- OUTSIDE RECORDS SUMMARY | 2022-09-10 00:54 | XMS_ITS | Encounter Summary ---
:1990 Author Organization [facility] Address [address] [place] [address] Care Team Providers Name Role Phone Unavailable Primary Care Provider Unavailable Encounter Details Date Type Department Care Team Description 08/09/2021 Hospital Encounter Department of Josefa [address] For Laboratory Medicine Shashank So Venereal Disease in [address] [place] [phone] Social History Tobacco Use Types Packs/Day Years [...] week 08/15/2022 How often do you attend adventist or congregational services? Never 08/15/2022 Do you belong to any clubs or organizations such as No 08/15/2022 adventist groups, unions, fraternal or athletic groups, or [...] place to sleep or slept in a usp (including now)? Education Answer Date Recorded What is the highest level of school Bachelor's degree (e.g., BA, AB, 04/13/2021 you have completed or the highest BS) degree you have received? Sex Assigned at Date Recorded Female 08/04/2021 7:52 PM CDT documented as of this encounter Medications at Time of Discharge Medication Sig Dispensed Refills Start Date End Date escitalopram (LEXAPRO) 10 0 06/20/2021 08/19/2022 mg tabletIndications: Depressive Disorder omeprazole (PriLOSEC) 20 Take 1 capsule (20 30 capsule 2 08/19/[address] capsuleIndications: mg total) by mouth Heartburn daily. vitamin-iron Take 1 tablet by 0 08/19/2022 fumarate-FA 28 mg iron- mouth daily. 800 mcg per tablet documented as of this encounter Plan of Treatment Upcoming Encounters Date Type Specialty Care Team Description 10/08/2022 Office Visit Obstetrics and Gynecology aKmini Lane M.D. [address] [phone] (Wo rk) documented as of this encounter Procedures Procedure Name Priority Date/Time Associated Diagnosis Comme nts HIV-1/-2 AG AND AB Routine 08/09/2021 10:17 AM Screening For R esults for this SCRN, CDT Venereal Disease procedure are in PLASMA the results section. SYPHILIS TOTAL AB Routine 08/09/2021 10:17 AM Screening For Re sults for this W/ REFLEX S CDT Venereal Disease procedure a re in the results section. HEPATITIS B SURFACE Routine 08/09/2021 10:17 AM Screening For Results for this ANTIGEN CDT Venereal Disease procedure a re in the results section. documented in this encounter Results HIV-1/-2 Ag and Ab Scrn, Plasma (08/09/2021 10:17 AM CDT) P athologist Signature HIV Ag/Ab Negative Negative 08/10/2021 [facility] Scrn, 1:08 AM CDT P Comment: Negative result does not rule out HIV in fection. If exposure to HIV infection occurred <14 d ays ago, contact the laboratory to request additi on of HIV-1 RNA detection / quantification test. HIV-1 p24 Ag Scrn, P Negative Negative 08/10/2021 1:08 AM CDT [facility] Comment: Negative result does not rule out HIV in fection. If exposure to HIV infection occurred <14 d ays ago, contact the laboratory to request additi on of HIV-1 RNA detection / quantification test. HIV-1 Ab Scrn, P Negative Negative 08/10/2021 1:0 8 AM CDT [facility] Comment: Negative result does not rule out HIV in fection. If exposure to HIV infection occurred <14 d ays ago, contact the laboratory to request additi on of HIV-1 RNA detection / quantification test. HIV-2 Ab Scrn, P Negative Negative 08/10/2021 1:0 8 AM CDT [facility] Comment: Negative result does not rule out HIV in fection. If exposure to HIV infection occurred <14 d ays ago, contact the laboratory to request additi on of HIV-1 RNA detection / quantification test. Specimen Anatomical Collection Method Collection Time Receive d Time (Source) Location / / Volume Laterality Blood (Blood, 08/09/2021 10:17 08/09/2021 3:36 Venous) AM CDT PM CDT Saray Lane M.D. LAB MICROBIOLOGY - BLOOD ORD ERABLES Performing Organization Address City/State/ZIP Code Phon e Number [facility]- [address] [place] [address] [phone] [place] [address] System [address] Hepatitis B Surface Antigen (08/09/2021 10:17 AM CDT) Patholo gist Method Time Signature HBs Antigen, Nonreactive Nonreactive 08/09/2021 AUST S 4:59 PM CDT Comment: Biotin has been identified by the johny dominguez as a potential interfering substance. ??Higher concentr ations of biotin may be found in multivitamins, hair/nail supple ments, and workout supplements. ??If the result does not ma [facility] clinical observations, repeat testing after patient refrains fr om the use of supplements for at least 12 hours. Specimen Anatomical Collection Method Collection Time Receive d Time (Source) Location / / Volume Laterality Blood (Blood, 08/09/2021 10:17 08/09/2021 4:18 Venous) AM CDT PM CDT Saray Lane M.D. LAB MICROBIOLOGY - BLOOD ORD ERABLES Performing Organization Address City/[facility] Code Phon e Number [facility]- [address] [place] [address] [facility] [place], [place] [id number] [place] [address] Syphilis Total Ab w/ Reflex, Serum (08/09/2021 10:17 AM CDT) [facility] Method Time Signature Syphilis Nonreactive Nonreactive 08/10/2021 [facility] Total Ab w/ 1:08 AM CDT Reflex Comment: No serologic evidence of infection with T. pallidum (syphilis). ??Repeat testing may be cons idered in patients with suspected acute or primary syphilis in 2-4 weeks. For additional information on interpreta tion of the syphilis reverse algorithm and resul ts, see: [email or web address] df Specimen Anatomical Collection Method Collection Time Receive d Time (Source) Location / / Volume Laterality Blood (Blood, 08/09/2021 10:17 08/09/2021 3:36 Venous) AM CDT PM CDT Saray Lane M.D. LAB BLOOD ADD-ON Performing Organization Address City/[facility] Phon e Number [facility]- [address] [place] [address] [phone] [place] [address] System [address] documented in this encounter Visit Diagnoses Diagnosis Screening For Venereal Disease documented in this encounter Additional Health Concerns Assessment Noted Time PHQ-9 Depression Total Score: 10 08/09/2021 9:11 AM CD T documented as of this encounter
--- OUTSIDE RECORDS SUMMARY | 2022-09-10 00:54 | XMS_ITS | Encounter Summary ---
:1990 Author Organization [facility] Address [address] [place] [address] Care Team Providers Name Role Phone Unavailable Primary Care Provider Unavailable Reason for Visit Outpatient (Routine) - Closed Specialty Diagnoses / Procedures Referred By Contact Refer red To Contact Diagnoses Management Contraceptive Saray Lane [facility] Procedures Injection Visit - Depo-Provera Yony [address] [place] [phone] Referral ID Status Reason Start Date Expiration Date Visits Requ ested Visits Authorized [id number] Closed 08/09/2021 08/09/2022 1 1 Encounter Details Date Type Department Care Team Description 01/18/2022 Procedure visit Department of Axel Lane M.D. [address] [place] [phone] Management Obstetrics and Stephanie Razo L.P.N. [address] [place] [phone] Contraceptive Gynecology in [address] [phone] Social History Tobacco Use Types Packs/Day Years [...] week 08/15/2022 How often do you attend worship or methodist services? Never 08/15/2022 Do you belong to any clubs or organizations such as No 08/15/2022 worship groups, unions, fraternal or athletic groups, or [...] place to sleep or slept in a nursing home (including now)? Education Answer Date Recorded What is the highest level of school Bachelor's degree (e.g., BA, AB, 04/13/2021 you have completed or the highest BS) degree you have received? 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 - 01/18/2022 4:15 PM CST Patient identifiers were verified and the following medication was administered to the patient today: Medroxyprogesterone (Depo-Provera). During this visit: Patient tolerated medication administration with no issues identified NAUTICAL RESEARCH ENGINEER documented in this encounter Plan of Treatment Upcoming Encounters Date Type Specialty Care Team Description 10/08/2022 Office Visit Obstetrics and Gynecology Kamini Lane M.D. [address], [place] [phone] (Wo rk) documented as of this encounter Visit Diagnoses Diagnosis Management Contraceptive documented in this encounter Administered Medications Inactive Administered Medications - up to 3 most recent administrations Medication Order MAR Action Action Date Dose Rate Site medroxyPROGESTERone Given 07/09/2022 150 mg Right Ventrogluteal injection 150 mg 4:04 PM CDT 150 mg, intramuscular, Every 12 weeks, First dose on Fri10/29/21 at 1315, For 4 doses Given 04/12/2022 11:33 AM CDT 150 mg Righ t Ventrogluteal Given 01/18/2022 4:10 PM AERONAUTICAL RESEARCH ENGINEER 150 mg Right Ventrogluteal documented in this encounter Additional Health Concerns Assessment Noted Time PHQ-9 Depression Total Score: 10 08/09/2021 9:11 AM CD T documented as of this encounter
--- OUTSIDE RECORDS SUMMARY | 2022-09-10 00:54 | XMS_ITS | Encounter Summary ---
:1990 Author Organization [facility] Address [address] [place] [address] Care Team Providers Name Role Phone Unavailable Primary Care Provider Unavailable Reason for Visit Outpatient (Routine) - Closed Specialty Diagnoses / Procedures Referred By Contact Refer red To Contact Obstetrics and Diagnoses Encounter For Supervision Of Normal First Unspecified Trimester (HCC) Depressive Disorder Anxiety Tobacco Use Colitis Ulcerative (HCC) Selina Locke, [facility] Gynecology APPLICATION HELPER, C.N.P. [address] [place] [phone] Referral ID Status Reason Start Date Expiration Date Visits Requ ested Visits Authorized [id number] Closed 04/18/2021 04/18/2022 1 1 Encounter Details Date Type Department Care Team Description 05/22/[address] Normal First Third Trimester (Primary Dx); Obstetrics and Yony So Depressive Disorder; Gynecology in [address] Anxiety; [place], [place] Tobacco Use; [address] [phone] Colitis Ulcerative (HCC); [place], [place] [phone] Heartburn; [phone] (Work) Vaginal Bleeding Third Trimest er; [phone] Discrepancy Duncan rine Size Date (Fax) Social History Tobacco Use Types Packs/Day Years [...] week 08/15/2022 How often do you attend hindu or baptism services? Never 08/15/2022 Do you belong to any clubs or organizations such as No 08/15/2022 hindu groups, unions, fraternal or athletic groups, or [...] place to sleep or slept in a snf (including now)? Education Answer Date Recorded What is the highest level of school Bachelor's degree (e.g., BA, AB, 04/13/2021 you have completed or the highest BS) degree you have received? Sex Assigned at Date Recorded Female 08/04/2021 7:52 PM CDT documented as of this encounter Last Filed Vital Signs Vital Sign Reading Time Taken Comments Blood Pressure 124/70 05/22/2021 2:35 PM CDT Pulse - - Temperature - - Respiratory Rate - - Oxygen Saturation - - Inhaled Oxygen Concentration - - Weight 71.4 kg (157 lb 6.5 oz) 05/22/2021 2:35 PM CDT Height - - Body Mass Index 28.06 03/07/2021 2:46 PM CDT documented in this encounter Progress Notes Saray Lane M.D. - 05/22/2021 2:45 PM CDT SUBJECTIVE No recent contractions. She had several episodes of short-lived, sharp, shooting pain in the pubic area yesterday. She notices that there are areas of her abdomen that will feel tight. SYSTEMS REVIEW Constitutional: Positive for fatigue. Psychiatric/Behavioral: Positive for sleep disturbance and feeling nervous, anxious, or on edge in past two weeks. All other systems reviewed and are negative. OBJECTIVE Vitals: 05/22/21 1435 BP: 124/70 Weight: 71.4 kg PHYSICAL EXAM GEN: NAD Lower Extremities: NT, no edema ASSESSMENT / PLAN Bri Finch is a 31 y.o. female at 35w2d by last menstrual period consistent with first trimester ultrasound who presents for OBFU. #1 Examination Normal First Third Trimester Overview: with [facility] 06/24/2021. Transfer of care from [facility] at 24 weeks gestation, she transferred there from [facility] DIRECTOR OF EVENT MARKETING. Have received her medical records from [facility] but not her anatomy US report, she signed request for records from [facility] DIRECT[employer] OF EVENT MARKETING today, as we do not have new OB labs or first trimester US report. Orders: - Obstetrics and Gynecology office visit (clinic) #2 Depressive Disorder Overview: Discontinued Lexapro due to decreased movement. Managing symptoms effectively with therapy. Will start medication at the time of delivery. #3 Anxiety Overview: Discontinued Lexapro due to decreased movement. Managing symptoms effectively with therapy andno medication currently. Last PHQ-9 score was 8 on 04/03/2021, feeling of sadness with breast stimulation. It is less intense at this point. She would like to restart a medication once she has the baby.She is not sure if she is going to breastfeed at this point. She will also schedule an appointment with psychiatry for shortly after baby is born. #4 Tobacco Use Overview: 5-6/day, and trying to quit. #5 Colitis Ulcerative (HCC) Overview: Under good control. Sees a vertical borer at [facility] for continued care. #6 Heartburn Overview: Symptoms are well managed with omeprazole. #7 Vaginal Bleeding Third Trimester Overview: Admitted for observation early in the 3rd trimester for this for this. Cx 2 cm dilated. Occurred with intercourse. No bleeding since. Was given BMZ x 2 at that time. Advised to continue pelvic rest until 36 weeks. #8 Discrepancy Uterine Size Date Overview: S<D, growth US today (05/22/2021) shows normal growth with EFW of 2453 gm, which is 28th%ile Orders: - US OB Limited Followup: 1 week for OBFU and GBS testing. documented in this encounter Plan of Treatment Upcoming Encounters Date Type Specialty Care Team Description 10/08/2022 Office Visit Obstetrics and Gynecology Kamini Lane M.D. [address] [place], [place] [phone] (Wo rk) documented as of this encounter Procedures Procedure Name Priority Date/Time Associated Comments Diagnosis US OB LIMITED RAD - Routine 06/01/2021 3:24 Discrepancy Uterine Res ults for this (most inpatients PM CDT Size Date proc edure are in and all the results outpatients) section. documented in this encounter Results US OB Limited (06/01/2021 3:24 PM CDT) P athologist Signature Estimated 2,453 grams Weight FHR 144 bpm Anatomical Region Laterality Modality Ultrasound OB RST LOS, Ultrasound ARZ LOS, Ultrasound FLA LO S, N/A Ultrasound Ultrasound ARZ LOS Specimen (Source) Anatomical Location Collection Method / Collectio n Time Received Time / Laterality Volume Narrative 06/01/2021 3:24 PM CDT Based upon multiple biometric measurements, EFW is 2453 gm with growth at the 28th%ile. ??Vertex presentation. ??F etal heart rate 144 BPM. ??MVP 6.9 cm, MIREYA 14.1 cm. ?? 4-chamber heart , stomach, kidneys and bladder appear normal. Placenta anterior. The report for this exam was documented during the exam and is located with the images in Qreads. Saray Lane M.D. IMG OB US PROCEDURES documented in this encounter Visit Diagnoses Diagnosis Examination Normal First Pregna ncy Third Trimester (HCC) - Primary Depressive Disorder Anxiety Tobacco Use Colitis Ulcerative (HCC) Heartburn Vaginal Bleeding Third Trimest er ([facility]) Discrepancy Uterine Size Date (HCC) documented in this encounter Additional Health Concerns Assessment Noted Time PHQ-9 Depression Total Score: 8 04/03/2021 3:31 PM CDT documented as of this encounter
--- OUTSIDE RECORDS SUMMARY | 2022-09-10 00:54 | XMS_ITS | Clinical Summary ---
:1990 Author Organization [facility] Address [address] [place] [address] Care Team Providers Name Role Phone Unavailable Primary Care Provider Unavailable Source Comments Patient records contain information from all sites at [facility]. For routine questions regarding patient records, call [phone] during business hours, M-F 8:00 AM - 5:00 PM Central Time. Record requests for emergency care only can be directed to [phone] at any time.[facility] Allergies Active Allergy Reactions Severity Noted Date Comments House Dust Mite Other (see comments) 06/07/2015 Ragweed Itching 06/07/2015 Medications Medication Sig Dispensed Refills Start Date End Date Status FLUoxetine (PROzac) Take 20 mg by 0 07/23/2022 Active 20 mg capsule mouth daily. hydrOXYzine Take 50 mg by 0 Acti ve (ATARAX) 50 mg mouth every 6 tablet (six) hours as needed. propranoloL Take 40 mg by 0 Acti ve (INDERAL) 40 mg mouth every 8 tablet (eight) hours. Take 1 tablet 0 08/19/2022 Disco ntinued vitamin-iron by mouth fumarate-FA 28 mg daily. iron- 800 mcg per tablet omeprazole Take 1 30 capsule 2 03/07/2021 08/19/2022 Discon tinued (PriLOSEC) [address] capsule (20 capsuleIndications: mg total) by Heartburn mouth daily. escitalopram 0 06/20/2021 08/19/2022 Disco ntinued (LEXAPRO) 10 mg tabletIndications: Depressive Disorder Active Problems Patient Care Coordination Note Formatting of this note might be differe nt from the original. Transfer of Care Labs: -O positive -Negative antibody screen -Urine culture: no growth -Patient reports recent normal pap (no r ecords) -Vitamin D: 18.2 OB education completed. Pre-reg completed at [facility]. LMP: 09/17/2020 EDC:06/24/2021 [place] provider:On-call FOB involved: boyfriend- Bia (poor so cial situation) Problem Noted Date High Risk Human Papillomavirus Deoxyribonucleic Acid T est Positive Cervix 08/21/2021 Overview: 08/09/2021: Pap NILM, HR HPV positive, no t 16 or 18 08/19/2022: Pap MASON, HR HPV positive, n ot 16 or 18. Plan: Colposcopy with biopsies, ECC, end ometrial biopsy if abnormal uterine bleeding, obesity, or conditions suggesting chronic anovulation Ulcerative Colitis Unspecified Without Complications 0 03/07/2021 Overview: Under good control. Sees a gastroenterol ogist at [facility] for continued care. No recent symptoms. Tobacco Use 03/07/2021 Overview: Still smoking but has been thinking abou t quitting recently. She has used Chantix and nicotine patches in the past without success in attempts to try to quit. Discussed that tobacco use makes it harder for the immune system to clear the HPV v irus. However, she has depression and anxiety in his had mood symptoms recently. Recommended that she work on managing these before trying to quit smoking. If she would like any assistance with smoking cessation, she can discuss this with her psychiatrist or let me know. Depressive Disorder 03/07/2021 Overview: Had been seeing a psychiatrist. She also sees a therapist. She has stress at home and work that contribute to her symptoms. She is currently on Prozac with improvement in symptoms, but she would like to increase her dose. She will make an srikanth ointment with her PCP to discuss this. Anxiety 03/07/2021 Overview: On Prozac 20 mg daily and desires to inc rease her dose. She will see her PCP for this while her psychiatrist is out on leave. She also sees a therapist. 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 Cx 2 cm dilated. Occurred with intercourse. No bleeding since. Was given BMZ x 2 at that time. Advised to continue pelvic rest until 36 weeks. Care 03/07/2021 08/10/2021 Overview: The patient is making excellent postpart um progress. She is voiding, ambulating, tolerating a regular diet and having bowel movements without difficulty. Her EPDS score is 10 today. Fatigue 03/07/2021 08/10/2021 Encounters Date Type Specialty Care Team Description 08/26/2022 Clinical Obstetrics and Aurea Omer Communication Gynecology J, R.N. 08/19/2022 Office Visit Obstetrics and [place], Screening For Venereal Disease (Primary Dx); Gynecology Saray, High Risk Human Papillomavirus Deoxyribonucleic Acid Test Positive Cervix; M.D. Depressive Diso rder; Anxiety; Tobacco Use 07/09/2022 Procedure visit Obstetrics and [place], Management Gynecology Saray, Contraceptive M.D. Stephanie Razo, L.P.N. from Last 3 Months Immunizations Name Administration Dates Next Due 4vHPV (discontinued) 05/03/2008, 03/15/2008, 11/13/2007 Influenza, Seasonal, Injectable 08/13/2011 MMR 12/02/2016 PPD Test 12/29/2019, 12/14/2019 SARS-COV-2 (COVID-19) - MODERNA 07/26/2021, 06/28/2021 Tdap 04/03/2021, 12/02/2016 influenza high dose (65 years or older) 12/02/2016 (PF) Social History Tobacco Use Types Packs/Day Years [...] week 08/15/2022 How often do you attend confucianism or latter-day services? Never 08/15/2022 Do you belong to any clubs or organizations such as No 08/15/2022 confucianism groups, unions, fraternal or athletic groups, or [...] Date Recorded Female 08/04/2021 7:52 PM CDT Last Filed Vital Signs Vital Sign Reading Time Taken Comments Blood Pressure 98/64 08/19/2022 2:29 PM CDT Pulse 81 06/07/2015 9:11 AM CDT Temperature - - Respiratory Rate - - Oxygen Saturation - - Inhaled Oxygen Concentration - - Weight 64.9 kg (143 lb 1.3 oz) 08/19/2022 2:29 PM CDT Height 159.5 cm (5' 2.8) 03/07/2021 2:46 PM CDT Body Mass Index 25.51 03/07/2021 2:46 PM CDT Plan of Treatment Upcoming Encounters Date Type Specialty Care Team Description 10/08/2022 Office Visit Obstetrics and Gynecology Kamini Lane M.D. [address] [place], [place] [phone] (Wo rk) Health Maintenance Due Date Last Done Comments Hepatitis B Vaccines (1 of 3 - 1990 3-dose series) Hepatitis C Screening 1990 Pneumococcal vaccine (0-64 years) 1997 (1 - PCV) COVID-19 Vaccine (3 - Booster for 09/20/2021 07/26/2021, Moderna series) Influenza Vaccine (#1) 2022 12/02/2016, 08/13/2011 Tobacco Cessation counseling 10/29/2022 10/29/2021 Depression Monitoring (PHQ-9) 12/20/2022 08/19/2022 Cervical Cancer Screening 08/19/2027 08/19/2022, 08/19/2022 , 08/09/2021, Additional history exists DTaP,Tdap,and Td Vaccines (3 - Td 04/03/2031 04/03/2021, or Tdap) HIV Screening Completed 08/09/2021 Procedures Procedure Name Priority Date/Time Associated Diagnosis [...] Disease procedure are in the results section. from Last 3 Months Results (ABNORMAL) ThinPrep w/HPV Co-Test Screen (08/19/2022 [...] an attachment that is no t available. Saray Lane M.D. LAB PAP PATHDX ORDERABLES Performing Organization Address City/State/ZIP Code Phon e Number [facility]- [address] [place] [address] [facility] [place] [address] System [place] [address] [facility] (ABNORMAL) HPV with Genotyping, PCR, ThinPrep (08/19/2022 3:02 PM CDT) [facility] Method Time Signature HPV with Positive (A) [...] 08/19/2022 3:02 PM 9:04 CDT AM CDT [address] M.D. LAB MICROBIOLOGY - GENERAL O MICK Performing Organization Address City/State/ZIP Code Phon e Number [facility]- [address] [place] [id number] [place] [address] System in [place] [address] [place] [address] Chlamydia / Gonorrhoeae Amplified RNA (08/19/2022 3:02 PM CDT) [facility] Method Time Signature Source Swab, Vagina 08/20/2022 MKTO 2:53 AM CDT Chlamydia Negative Negative 08/20/2022 MKTO trachomatis 2:53 AM CDT amplified RNA Source Swab, Vagina 08/20/2022 MKTO 2:53 AM CDT Neisseria Negative Negative 08/20/2022 MKTO gonorrhoeae 2:53 AM CDT amplified RNA Specimen Anatomical Collection Method Collection Time Receive d Time (Source) Location / / Volume Laterality Swab (Vagina) 08/19/2022 3:02 PM 08/19/20 7:39 CDT PM CDT [address] M.D. LAB MICROBIOLOGY - GENERAL O RDERABLES Performing Organization Address City/State/ZIP Code Phon e Number [facility]- [address] [place] [address] [place] [address] System in [place] [address] [facility] from Last 3 Months Insurance Payer Benefit Plan Subscriber ID Effective Dates Phone Address Type / Group [facility] CARE [id number] 2021-Presen [phone] [id number] Medicaid HMO t [address] [place] [address]
--- OUTSIDE RECORDS SUMMARY | 2022-09-10 00:54 | XMS_ITS | Encounter Summary ---
:1990 Author Organization [facility] Address [address] [place] [address] Care Team Providers Name Role Phone Unavailable Primary Care Provider Unavailable Reason for Referral Outpatient (Routine) - Closed Specialty Diagnoses / Procedures Referred By Contact Refer red To Contact Obstetrics and Diagnoses High Risk Human Papillomavirus Deoxyribonucleic Acid Test Positive Cervix MARLENE Clayton [facility] Gynecology Yony So [address] [place] [phone] Referral ID Status Reason Start Date Expiration Date Visits Requ ested Visits Authorized [id number] Closed 08/21/2021 08/21/2022 1 1 Scheduling Instructions Schedule 15 minute visit Outpatient (Routine) - Closed Specialty Diagnoses / Procedures Referred By Contact Refer patti To Contact Diagnoses Management Contraceptive Saray Clayton [facility] Procedures Injection Visit - Depo-Provera Yony [address] [place] [phone] Referral ID Status Reason Start Date Expiration Date Visits Requ ested Visits Authorized [id number] Closed 08/09/2021 08/09/2022 1 1 Reason for Visit Reason Comments Care 6 wk post Appointment Request (Routine) - Closed Specialty Diagnoses / Procedures Referred By Contact Refer red To Contact Obstetrics and Gynecology Referral ID Status Reason Start Date Expiration Date Visits Requ ested Visits Authorized [id number] Closed 06/21/2021 06/21/2022 1 1 Encounter Details Date Type Department Care Team Description 08/09/2021 Visit Department of Domingo, Care Postp artum (HCC) (Primary Dx); Obstetrics and Saray, Screening For Venereal Disease; Gynecology in M.D. Pap Smear Examination; [place], [address] Management Cont raceptive; [address] Anxiety; [address] [place], [place] Ulcerative Colitis Unspecifi ed Without Complications (HCC); [place] [id number] Depressive Disorder; [id number] Tobacco Use; High Risk Human Papillomavirus Deoxyribo nucleic Acid Test Positive Cervix Social History Tobacco Use Types Packs/Day Years [...] week 08/15/2022 How often do you attend episcopalian or caodaism services? Never 08/15/2022 Do you belong to any clubs or organizations such as No 08/15/2022 episcopalian groups, unions, fraternal or athletic groups, or [...] Sign Reading Time Taken Comments Blood Pressure 106/66 08/09/2021 9:06 AM CDT Pulse - - Temperature - - Respiratory Rate - - Oxygen Saturation - - Inhaled Oxygen Concentration - - Weight 62.9 kg (138 lb 12.5 oz) 08/09/2021 9:06 AM CDT Height - - Body Mass Index 24.74 03/07/2021 2:46 PM CDT documented in this encounter H&P Notes Saray Clayton M.D. - 08/09/2021 9:00 AM CDT SUBJECTIVE VISIT REASON FOR VISIT/CHEIF COMPLAINT visit HISTORY OF PRESENT ILLNESS Bri is a 31 y.o. female who is 7 weeks 2 day(s) status post normal spontaneous vaginal delivery who presents for visit today. She is voiding, ambulating, tolerating a regular diet and having bowel movements without difficulty. She is having no difficulty with voiding, ambulating, to lerating a regular diet and having bowel movements. Her lochia has resolved. She has had intercoursesince delivery. It was a little tender, particularly inside. She has no mood concerns at this time that are different than her baseline. She has had days that she has felt really bad, but she continuesher medication and therapy and that is helping. This was worst 2 weeks ago but seems to be getting better now. She has no post delivery pain at this time. She is bottle feeding her without difficulty. She plans depo provera injection for contraception. The patient's allergies and current medications were reviewed and updated as appropriate. REVIEW OF SYSTEMS: Constitutional: Negative for fatigue, fever, weight gain of more than 10 pounds and weight loss of more than 10 pounds. Skin: Negative for skin rash, change in mole or skin spot, breast lump and nipple discharge. Eyes: Negative for visual problems. ENT: Negative for difficulty hearing and sinus congestion. Respiratory: Negative for coughing up mucus (phlegm), dry cough, dyspnea and wheezing. Cardiovascular: Negative for chest pain, pressure or tightness and rapid or fluttering heart beat. Gastrointestinal: Negative for abdominal (belly) pain or cramping, constipation, diarrhea, heartburn, nausea and vomiting. Genitourinary: Negative for abnormal vaginal bleeding, incontinence, difficulty urinating, pain withurination and menses change or abnormal. Musculoskeletal: Negative for arthralgias, back pain and pain or stiffness in the joints. Neurological: Negative for numbness or shooting pain in hands, arms, legs, or feet, loss of balance or tendency to fall easily and headaches. Psychiatric/Behavioral: Positive for feeling down, depressed, or hopeless over past two weeks. Negative for sleep disturbance and feeling nervous, anxious, or on edge in past two weeks. The following systems were negative: Constitutional, Skin, Eyes, ENT, CV, Respiratory, GI, , Hematologic, Musculoskeletal, Neuro The patient's Past Medical History, Past Surgical History, Social History, and Family History were reviewed and updated as appropriate. HOG RIBBER HISTORY OB History Para Term AB Living 2 1 1 SAB TAB Ectopic Molar Multiple Live Births 1 # Outcome Date GA Lbr Faisal/2nd Weight Sex Delivery Anes PTL Lv 2 1 Para 06/19/21 2.87 kg F Vag-Spont SUMANTH OBJECTIVE PHYSICAL EXAM Vitals: 08/09/21 0906 BP: 106/66 Weight: 62.9 kg General: Well-nourished female in no acute distress Head: Normocephalic, atraumatic ENT: Vision and hearing grossly intact Lymph nodes: No supraclavicular, infraclavicular, or axillary lymphadenopathy Heart: Regular rate and rhythm, no murmurs, rubs or gallops Chest: Clear to auscultation bilaterally, no wheezes or rales, breathing nonlabored Breasts: Symmetric bilaterally, no lesions or dimpling of the skin noted, right nipple inverted, no dominant masses palpable Abdomen: Soft, nondistended, nontender, normoactive bowel sounds, no masses palpable, no rebound or guarding Pelvic exam: External genitalia without lesions or abnormalities, normal pubic hair distribution, urethral meatus normal in appearance and without masses, vaginal mucosa is pink and moist with a small amount of thin, clear discharge present in the posterior vaginal fornix, cervix appears parous and iswithout gross lesions or abnormalities, vaginal laceration is well healed, on bimanual examination, the bladder and urethra are nontender, the uterus is normal in size and nontender, no adnexal masses or tenderness are noted Lower extremities: Nontender, no edema Skin: No rashes or lesions Neuro: Alert and oriented x3 ASSESSMENT / PLAN 31 y.o. female who is 7 weeks 2 day(s) status post normal spontaneous vaginal delivery who presents for visit today. #1 Care (HCC) Overview: The patient is making excellent progress. She is voiding, ambulating, tolerating a regular diet and having bowel movements without difficulty. Her EPDS score is 10 today. #2 Screening For Venereal Disease Comments: FOB may have had other partners recently. She requests STD testing. Orders: - Chlamydia / Gonorrhoeae Amplified RNA - Syphilis Total Ab w/ Reflex, Serum; Future; Expected date: 08/09/2021 - Hepatitis B Surface Antigen; Future; Expected date: 08/09/2021 - HIV-1/-2 Ag and Ab Scrn, Plasma; Future; Expected date: 08/09/2021 #3 Pap Smear Examination - ThinPrep w/HPV Co-Test Screen - HPV with Genotyping, PCR, ThinPrep #4 Management Contraceptive Comments: She desires depo provera. First injection given today. Discussed possibility that it could affect her mood and she should watch for this. Orders: - Injection Visit - Depo-Provera; Standing - medroxyPROGESTERone injection 150 mg; 150 mg, intramuscular, Once, On Meagan 08/09/21 at 1000, For 1 dose #5 Anxiety Overview: She restarted Lexapro 10 mg daily. She also sees a therapist. PHQ-9 score is 10 today. The FOB is not supportive and not around much, possibly unfaithful, so this contributes to her symptoms. #6 Ulcerative Colitis Unspecified Without Complications ([facility]) Overview: Under good control. Sees a home and family living professor at [facility] for continued care. No recent symptoms. #7 Depressive Disorder Overview: She restarted Lexapro 10 mg daily. She also sees a therapist. PHQ-9 score is 10 today. The FOB is not supportive and not around much, possibly unfaithful, so this contributes to her symptoms. #8 Tobacco Use Overview: 5-6/day, still smoking and is not ready to quit. Has had additional life stressors recently. Follow-up: Continue with therapy for anxiety/depression concerns. With me in 2-3 years for annual exam, or as needed. documented in this encounter Miscellaneous Notes Addendum Note - Saray Clayton M.D. - 08/09/2021 9:00 AM CDT Addended by: SARAY CLAYTON on: 08/21/2021 10:51 PM Modules accepted: Orders documented in this encounter Plan of Treatment Upcoming Encounters Date Type Specialty Care Team Description 10/08/2022 Office Visit Obstetrics and Gynecology Kamini Clayton M.D. [address], [place] [phone] (Wo rk) Scheduled Orders Name Type Priority Associated Diagnoses Order S chedule Injection Visit - OB Routine Management Contraceptiv e 4 Occurrences starting Depo-Provera 08/09/2021 unti l 08/09/2024 Scheduled Referrals Name Type Priority Associated Diagnoses Order S chedule Obstetrics and Outpatient Routine High Risk Human Expected: Gynecology office Referral Papillomavirus 08/21/20 22 visit (clinic) Deoxyribonucleic Acid (Erin roximate), Test Positive Cervix Expires : 08/21/2024 documented as of this encounter Procedures Procedure Name Priority Date/Time Associated Diagnosis Comme nts THINPREP W/HPV Routine 08/09/2021 9:47 AM Pap Smear Results for this CO-TEST SCREEN CDT Examination procedure are in the results section. HPV WITH Routine 08/09/2021 9:47 AM Pap Smear Results f or this GENOTYPING, PCR, CDT Examination procedure a re in THINPREP the results section. CHLAMYDIA/GONORRHOE Routine 08/09/2021 9:47 AM Screening For R esults for this AE AMPLIFIED RNA CDT Venereal Disease procedu re are in the results section. documented in [...] P Negative Negative 08/10/2021 1:08 AM CDT CA Comment: Negative result does [...] 3:36 Venous) AM CDT PM CDT Saray Clayton M.D. LAB MICROBIOLOGY - BLOOD ORD ERABLES Performing Organization Address City/State/ZIP Code Phon e Number [facility]- [address] [place] [phone] [place] [address] Hepatitis B Surface Antigen (08/09/2021 10:17 AM CDT) [facility] Tier 1 Performance Method Time Signature HBs Antigen, Nonreactive Nonreactive [...] 4:18 Venous) AM CDT PM CDT Saray Clayton M.D. LAB MICROBIOLOGY - BLOOD ORD ERABLES Performing Organization Address [facility] Phon e Number [facility]- [address] [place] [address] [facility] [place], [place] [id number] [place] [address] Syphilis Total Ab w/ Reflex, Serum (08/09/2021 10:17 AM CDT) [facility] Tier 1 Performance Method Time Signature Syphilis Nonreactive Nonreactive 08/10/2021 [facility] Total Ab w/ 1:08 AM CDT Reflex Comment: No serologic evidence of infection with T. pallidum (syphilis). ??Repeat testing may be cons idered in patients with suspected acute or primary syphilis in 2-4 weeks. For additional information on interpreta tion of the syphilis reverse algorithm and resul ts, see: [email or web address] Specimen Anatomical Collection Method Collection Time Receive d Time (Source) Location / / Volume Laterality Blood (Blood, 08/09/2021 10:17 08/09/2021 3:36 Venous) AM CDT PM CDT Saray Clayton M.D. LAB BLOOD ADD-ON Performing Organization Address [facility] Phon e Number [facility]- [address] [place] [phone] [place] [address] [address] (ABNORMAL) HPV with Genotyping, PCR, ThinPrep (08/09/2021 9:47 AM CDT) [facility] Method Time Signature HPV with Positive (A) Negative 08/17/2021 [facility] Genotyping, 5:45 PM CDT ThinPrep, PCR Comment: Positive for high risk HPV by nucleic ac id amplification. Positive for one or more of the following high risk types: 16, 18, 31, 33, 35, 39, 45, 51, 52, 56, 58, 59, 66, and 68. See genotyping result. HPV High Risk type 16, PCR Negative Negative 08/17/2021 5: 45 PM CDT [facility] HPV High Risk type 18/45, PCR Negative Negative 08/17/2021 5:45 PM CDT [facility] Specimen Anatomical Collection Method Collection Time Receive d Time (Source) Location / / Volume Laterality Varies 08/09/2021 9:47 AM 7:31 CDT AM CDT Saray Clayton M.D. LAB MICROBIOLOGY - GENERAL O MICK Performing Organization Address City/[facility] Code Phon e Number [address] [address] [place] [address] Chlamydia / Gonorrhoeae Amplified RNA (08/09/2021 9:47 AM CDT) [facility] Method Time Signature Source Swab, Vagina 08/09/2021 [facility] 7:20 PM CDT Chlamydia Negative Negative 08/09/2021 [facility] trachomatis 7:20 PM CDT amplified RNA Source Swab, Vagina 08/09/2021 [facility] 7:20 PM CDT Neisseria Negative Negative 08/09/2021 [facility] gonorrhoeae 7:20 PM CDT amplified RNA Specimen Anatomical Collection Method Collection Time Receive d Time (Source) Location / / Volume Laterality Varies (Vagina) 08/09/2021 9:47 AM 2020 2:32 CDT PM CDT Saray Clayton M.D. LAB MICROBIOLOGY - GENERAL O MICK Performing Organization Address City/[facility] Phon e Number [facility]- [address] [place] [phone] [place] [address] ThinPrep w/HPV Co-Test Screen (08/09/2021 9:47 AM CDT) Component Value Ref Test Analysis Performed Pathologis t Range Method Time At Signature 08/20/2021 [facility] 7:17 AM CDT Report [id number] Culp(ASCP) 08/20/2021 HK electronically 7:17 AM signed by CDT I verify that I have examined all relevant slides/materials for the specimen(s) and rendered or confirmed the diagnosis. Gross Description Received specimen 08/20/2021 HK Y in a ThinPrep 7:17 AM vial. CDT Pap Test Source Cervical/Endocervi 08/20/2021 [facility] brandon 7:17 AM CDT Clinical History post 08/20/2021 [facility] 7:17 AM CDT Menstrual post 08/20/2021 HK Status(LMP, PM, 7:17 AM ) CDT Hormone None/Not known 08/20/2021 [facility] Therapy/Contracep 7:17 AM tives CDT Interpretation Cervical/Endocervical ??(ThinPrep): 08/20/2021 [facility] 7:17 AM Satisfactory for Evaluation CDT Negative for Intraepithelial Lesion or Malignancy High Risk HPV: ??Positive Positive for High Risk HPV by nucleic acid amplification. Positive for one or more of the following High Risk HPV types: 16, 18, 31, 33, 35, 39, 45, 51, 52, 56, 58, 59, 66, and 68. HPV Type 16: ??Negative HPV Type 18/45: ??Negative Specimen Anatomical Collection Method Collection Time Receive d Time (Source) Location / / Volume Laterality Varies 08/09/2021 9:47 AM 7:31 (Cervix/Endocerv CDT AM CDT ix) Narrative This result has an attachment that is no t available. Saray Clayton M.D. LAB PAP PATHDX ORDERABLES Performing Organization Address City/State/ZIP Code Phon e Number [facility]- [address] [place] [address] [place] [address] System [facility] [address] [facility] documented in this encounter Visit Diagnoses Diagnosis Care (HCC) - Primary Screening For Venereal Disease Pap Smear Examination Management Contraceptive Anxiety Ulcerative Colitis Unspecified Without C omplications (HCC) Depressive Disorder Tobacco Use High Risk Human Papillomavirus Deoxyribo nucleic Acid Test Positive Cervix documented in this encounter Administered Medications Inactive Administered Medications - up to 3 most recent administrations Medication Order MAR Action Action Date Dose Rate Site medroxyPROGESTERone Given 08/09/2021 9:51 150 mg Left Ventrogluteal injection 150 mg AM CDT 150 mg, intramuscular, Once, On Meagan 08/09/21 at 1000, For 1 dose documented in this encounter Additional Health Concerns Assessment Noted Time PHQ-9 Depression Total Score: 10 08/09/2021 9:11 AM CD T documented as of this encounter
--- OUTSIDE RECORDS SUMMARY | 2022-09-10 00:54 | XMS_ITS | Encounter Summary ---
:1990 Author Organization [facility] Address [address] [place] [address] Care Team Providers Name Role Phone Unavailable Primary Care Provider Unavailable Reason for Visit Outpatient (Routine) - Closed Specialty Diagnoses / Procedures Referred By Contact Refer red To Contact Diagnoses Management Contraceptive Saray Lane [facility] Procedures Injection Visit - Depo-Provera Yony [address] [place] [phone] Referral ID Status Reason Start Date Expiration Date Visits Requ ested Visits Authorized [id number] Closed 08/09/2021 08/09/2022 1 1 Encounter Details Date Type Department Care Team Description 04/12/2022 Procedure visit Department of Axel Lane M.D. [address] [place] [phone] Management Obstetrics and Stephanie Razo L.P.N. [address] [place] [address] Contraceptive Gynecology in [address] [phone] Social History Tobacco Use Types Packs/Day Years [...] week 08/15/2022 How often do you attend gnosticism or rastafari services? Never 08/15/2022 Do you belong to any clubs or organizations such as No 08/15/2022 gnosticism groups, unions, fraternal or athletic groups, or [...] - Inhaled Oxygen Concentration - - Weight 65.5 kg (144 lb 8.2 oz) 04/12/2022 11:33 AM CDT Height - - Body Mass Index 25.76 03/07/2021 2:46 PM CDT documented in this encounter Progress Notes Stephanie Razo, L.P.N. - 04/12/2022 11:30 AM CDT Patient identifiers were verified and the following medication was administered to the patient today: Medroxyprogesterone (Depo-Provera). During this visit: Patient tolerated medication administration with no issues identified documented in this encounter Plan of Treatment Upcoming Encounters Date Type Specialty Care Team Description 10/08/2022 Office Visit Obstetrics and Gynecology Kamini Lane M.D. [address] [phone] (Wo rk) documented as [...] Righ t Ventrogluteal Given 01/18/2022 4:10 PM [employer]EE [employer] AIDE 150 mg Right Ventrogluteal documented in this encounter Additional Health Concerns Assessment Noted Time PHQ-9 Depression Total Score: 10 08/09/2021 9:11 AM CD T documented as of this encounter
--- OUTSIDE RECORDS SUMMARY | 2022-09-10 00:54 | XMS_ITS | Encounter Summary ---
:[address] [facility] Address [address] [place] [address] Care Team Providers Name Role Phone Unavailable Primary Care Provider Unavailable Reason for Visit Reason Comments Routine Visit Outpatient (Routine) - Closed Specialty Diagnoses / Procedures Referred By Contact Refer red To Contact Obstetrics and Diagnoses Examination Normal First Third Trimester ([facility]) [address] [facility] Gynecology Yony So [address] [place] [address] Referral ID Status Reason Start Date Expiration Date Visits Requ ested Visits Authorized [id number] Closed 05/29/2021 05/29/2022 1 1 Encounter Details Date Type Department Care Team Description 06/15/[address] Normal First Third Trimester (Primary Dx); Obstetrics and Yony So Anxiety; Gynecology in [address] [facility] ([facility]); [place], [place] Depressive Disorder; [address] [phone] Heartburn; [place], [place] [phone] Tobacco Use; [address] (Work) Vaginal Bleeding Third Trimest er; [phone] Discrepancy [place] rine Size Date (Fax) Social History Tobacco [...] week 08/15/2022 How often do you attend spiritism or yazdanism services? Never 08/15/2022 Do you belong to any clubs or organizations such as No 08/15/2022 spiritism groups, unions, fraternal or athletic groups, or [...] place to sleep or slept in a fdc (including now)? Education Answer Date Recorded What is the highest level of school Bachelor's degree (e.g., BA, AB, 04/13/2021 you have completed or the highest BS) degree you have received? Sex Assigned at Date Recorded Female 08/04/2021 7:52 PM CDT documented as of this encounter Last Filed Vital Signs Vital Sign Reading Time Taken Comments Blood Pressure 110/60 06/15/2021 1:39 PM CDT Pulse - - Temperature - - Respiratory Rate - - Oxygen Saturation - - Inhaled Oxygen Concentration - - Weight 72.7 kg (160 lb 4.4 oz) 06/15/2021 1:39 PM CDT Height - - Body Mass Index 28.57 03/07/2021 2:46 PM CDT documented in this encounter Progress Notes Saray Lane M.D. - 06/15/2021 1:45 PM CDT SUBJECTIVE She also has focal areas of abdominal tightening, not regular or painful, possibly contractions. This has not changed. SYSTEMS REVIEW All other systems reviewed and are negative. OBJECTIVE Vitals: 06/15/21 1339 BP: 110/60 Weight: 72.7 kg PHYSICAL EXAM GEN: NAD Lower Extremities: NT, trace edema ASSESSMENT / PLAN Bri Finch is a 31 y.o. female at 38w5d by last menstrual period consistent with first trimester ultrasound who presents for OBFU. #1 Examination Normal First Third Trimester Overview: with [facility] 06/24/2021. Transfer of care from [place] at 24 weeks gestation, she transferred there from [facility] [place] [employer] [employer]. Have received her medical records from [place] but not her anatomy US report, she signed request for records from [facility] [place] [employer] at 36 weeks and we still do not have records. They sent her visit notesbut we not her new OB labs and 1st trimester US. Will have nursing check into this. Orders: - Obstetrics and Gynecology office visit (clinic) #2 Anxiety Overview: Discontinued Lexapro due to decreased [...] psychiatry for shortly after baby is born. #3 Colitis Ulcerative (HCC) Overview: Under good control. Sees a printmaker at [facility] for continued care. #4 Depressive Disorder Overview: Discontinued Lexapro due to decreased movement. Managing symptoms effectively with therapy. Will start medication at the time of delivery. #5 Heartburn Overview: Symptoms are well managed with omeprazole. #6 Tobacco Use Overview: 5-6/day, and trying to quit. #7 Vaginal Bleeding Third Trimester Overview: Admitted for observation early in the 3rd trimester for this for this. Cx 2 cm dilated. Occurred with intercourse. No bleeding since. Was given BMZ x 2 at that time. Advised to continue pelvic rest until 36 weeks. #8 Discrepancy Uterine Size Date Overview: S<D, growth US on 05/22/2021 showed normal growth with EFW of 2453 gm, which is 28th%ile Followup: 1 week for OBFU. documented in this encounter Plan of Treatment Upcoming Encounters Date Type Specialty Care Team Description 10/08/2022 Office Visit Obstetrics and Gynecology Kamini Lane M.D. [address] [phone] (Wo rk) documented as of this encounter Visit Diagnoses Diagnosis Examination Normal First Pregna ncy Third Trimester (HCC) - Primary Anxiety Colitis Ulcerative (HCC) Depressive Disorder Heartburn Tobacco Use Vaginal Bleeding Third Trimest er (HCC) Discrepancy Uterine Size Date (HCC) documented in this encounter Additional Health Concerns Assessment Noted Time PHQ-9 Depression Total Score: 8 04/03/2021 3:31 PM CDT documented as of this encounter
--- OUTSIDE RECORDS SUMMARY | 2022-09-10 00:54 | XMS_ITS | Encounter Summary ---
:1990 Author Organization [facility] Address [address] [place] [address] Care Team Providers Name Role Phone Unavailable Primary Care Provider Unavailable Encounter Details Date Type Department Care Team Description 04/26/2021 Orders Only Department of Obstetrics Gabo Pyle Jr., and Gynecology in [place], [place] [address] [place] [address] [place] [address] [phone] Social History Tobacco Use Types Packs/Day Years [...] week 08/15/2022 How often do you attend lutheran or jain services? Never 08/15/2022 Do you belong to any clubs or organizations such as No 08/15/2022 lutheran groups, unions, fraternal or athletic groups, or [...] PM CDT documented as of this encounter Plan of Treatment Upcoming Encounters Date Type Specialty Care Team Description 10/08/2022 Office Visit Obstetrics and Gynecology Kamini Lane M.D. [address] [place] [phone] (Wo rk) documented as of this encounter Visit Diagnoses Not on filedocumented in this encounter Additional Health Concerns Assessment Noted Time PHQ-9 Depression Total Score: 8 04/03/2021 3:31 PM CDT documented as of this encounter
--- OUTSIDE RECORDS SUMMARY | 2022-09-10 00:54 | XMS_ITS | Encounter Summary ---
:1990 Author Organization [facility] Address [address] [place] [address] Care Team Providers Name Role Phone Unavailable Primary Care Provider Unavailable Reason for Referral Outpatient (Routine) - Closed Specialty Diagnoses / Procedures Referred By Contact Refer red To Contact Obstetrics and Diagnoses Examination Normal First Third Trimester (HCC) MARLENE Lane [facility] Oj So M.D. [address] [phone] Referral ID Status Reason Start Date Expiration Date Visits Requ ested Visits Authorized [id number] Closed 05/29/2021 05/29/2022 1 1 Outpatient (Routine) - Closed Specialty Diagnoses / Procedures Referred By Contact Refer patti To Contact Obstetrics and Diagnoses Examination Normal First Third Trimester (HCC) MARLENE Lane [facility] Oj So M.D. [address] [place] [phone] Referral ID Status Reason Start Date Expiration Date Visits Requ ested Visits Authorized [id number] Closed 05/29/2021 05/29/2022 1 1 Reason for Visit Reason Comments Routine Visit Outpatient (Routine) - Closed Specialty Diagnoses / Procedures Referred By Contact Refer red To Contact Obstetrics and Diagnoses Encounter For Supervision Of Normal First Unspecified Trimester (HCC) Depressive Disorder Anxiety Tobacco Use Colitis Ulcerative (HCC) Selina Locke, [facility] Gynecology STATEMENT DISTRIBUTION CLERK, C.N.P. [address] [place] [address] Referral ID Status Reason Start Date Expiration Date Visits Requ ested Visits Authorized [id number] Closed 04/18/2021 04/18/2022 1 1 Encounter Details Date Type Department Care Team Description 05/29/[address] Normal First Third Trimester (Primary Dx); Obstetrics and Yony So Depressive Disorder; Gynecology in [address] Anxiety; [place], [place], [place] Tobacco Use; [address] [address] Colitis Ulcerative ([facility]); [place], [place] [phone] Heartburn [address] (Work) [phone] Social History Tobacco Use Types Packs/Day Years [...] How often do you attend episcopalian or jew services? Never 08/15/2022 Do you belong to [...] place to sleep or slept in a [facility] (including now)? Education Answer Date Recorded What is the highest level of school Bachelor's degree (e.g., BA, AB, 04/13/2021 you have completed or the highest BS) degree you have received? Sex Assigned at Date Recorded Female 08/04/2021 7:52 PM CDT documented as of this encounter Last Filed Vital Signs Vital Sign Reading Time Taken Comments Blood Pressure 118/62 05/29/2021 2:35 PM CDT Pulse - - Temperature - - Respiratory Rate - - Oxygen Saturation - - Inhaled Oxygen Concentration - - Weight 71.2 kg (156 lb 13.7 oz) 05/29/2021 2:35 PM CDT Height - - Body Mass Index 27.96 03/07/2021 2:46 PM CDT documented in this encounter Progress Notes Saray Lane M.D. - 05/29/2021 2:45 PM CDT SUBJECTIVE She feels a lot of low abdominal pressure and movement. She also has focal areas of abdominal tightening, not regular or painful. SYSTEMS REVIEW All other systems reviewed and are negative. OBJECTIVE Vitals: 05/29/21 1435 BP: 118/62 Weight: 71.2 kg PHYSICAL EXAM GEN: NAD Lower Extremities: NT, no edema ASSESSMENT / PLAN Bri Finch is a 31 y.o. female at 33w1d by last menstrual period consistent with first trimester ultrasound who presents for OBFU. #1 Examination Normal First Third Trimester Overview: with EDC 06/24/2021. Transfer of care from [place] at 24 weeks gestation, she transferred there from [facility] THERMAL CUTTER HAND. Have received her medical records from [place] but not her anatomy US report, she signed request for records from [facility]ERMAL CUTTER [facility] today, as we do not have new OB labs or first trimester US report. Orders: - Obstetrics and Gynecology office visit (clinic) - Group B Strep (S. agalactiae), PCR - Obstetrics and Gynecology office visit (clinic); Future; Expected date: 06/12/2021 - Obstetrics and Gynecology office visit (clinic); Future; Expected date: 06/19/2021 #2 Depressive Disorder Overview: Discontinued Lexapro due to decreased movement. Managing symptoms effectively with therapy. Will start medication at the time of delivery. #3 Anxiety Overview: Discontinued Lexapro due to decreased movement. Managing symptoms effectively with therapy currently. Last PHQ-9 score was 8 on 04/03/2021, feeling of sadness with breast stimulation. It is less intense at this point. She would like to restart a medication once she has the baby. She is not sure if she is going to breastfeed at this point. She will also schedule an appointment with psychiatry [facility] after baby is born. #4 Tobacco Use Overview: 5-6/day, and trying to quit. #5 Colitis Ulcerative (HCC) Overview: Under good control. Sees a sports equipment racker at [facility] for continued care. #6 Heartburn Overview: Symptoms are well managed with omeprazole. Followup: 1 week for OBFU. documented in this encounter Plan of Treatment Upcoming Encounters Date Type Specialty Care Team Description 10/08/2022 Office Visit Obstetrics and Gynecology Kamini Lane M.D. [address] [place] [phone] (Wo rk) Scheduled Referrals Name Type Priority Associated Diagnoses Order S chedule Obstetrics and Outpatient Referral Routine Examination Prenata l Expected: Gynecology office Normal First 06/12/2021 visit (clinic) Third (Approxima te), Trimester Expires: 05/29/2024 Obstetrics and Outpatient Referral Routine Examination Prenata l Expected: Gynecology office Normal First 06/19/2021 visit (clinic) Third (Approxima te), Trimester Expires: 05/29/2024 documented as of this encounter Procedures Procedure Name Priority Date/Time Associated Diagnosis Comme nts GROUP B STREP (S. Routine 05/29/2021 3:10 PM Examination Prena paula Results for this AGALACTIAE), PCR CDT Normal First procedure a re in Third the results Trimester section. documented in this encounter Results Group B Strep (S. agalactiae), PCR (05/29/2021 3:10 PM CDT) P athologist Signature Grp B Strep Negative Negative 05/30/2021 MKTO (S. 2:36 PM CDT agalactiae), PCR Specimen Anatomical Collection Method Collection Time Receive d Time (Source) Location / / Volume Laterality Varies 05/29/2021 3:10 PM 6:45 (Vagina-Rectum) CDT PM CDT Saray Lane M.D. LAB MICROBIOLOGY - GENERAL O RDERABLES Performing Organization Address City/State/ZIP Code Phon e Number [facility]- [address] [place] [address] [place] [address] System [address] documented in this encounter Visit Diagnoses Diagnosis Examination Normal First Pregna ncy Third Trimester (HCC) - Primary Depressive Disorder Anxiety Tobacco Use Colitis Ulcerative (HCC) Heartburn documented in this encounter Additional Health Concerns Assessment Noted Time PHQ-9 Depression Total Score: 8 04/03/2021 3:31 PM CDT documented as of this encounter
--- OUTSIDE RECORDS SUMMARY | 2022-09-10 00:54 | XMS_ITS | Encounter Summary ---
:1990 Author Organization [facility] Address [address] [place] [address] Care Team Providers Name Role Phone Unavailable Primary Care Provider Unavailable Reason for Visit Outpatient (Routine) - Closed Specialty Diagnoses / Procedures Referred By Contact Refer red To Contact Diagnoses Management Contraceptive Saray Lane [facility] Procedures Injection Visit - Depo-Provera Yony [address] [place] [phone] Referral ID Status Reason Start Date Expiration Date Visits Requ ested Visits Authorized [id number] Closed 08/09/2021 08/09/2022 1 1 Encounter Details Date Type Department Care Team Description 07/09/2022 Procedure visit Department of Axel Lane M.D. [address] [place] [phone] Management Obstetrics and Stephanie Razo L.P.N. [address] [place] [address] Contraceptive Gynecology in [address] [phone] Social History Tobacco Use Types Packs/Day Years [...] week 08/15/2022 How often do you attend restorationist or roman catholic services? Never 08/15/2022 Do you belong to any clubs or organizations such as No 08/15/2022 restorationist groups, unions, fraternal or athletic groups, or [...] place to sleep or slept in a residential (including now)? Education Answer Date Recorded What [...] - Inhaled Oxygen Concentration - - Weight 64.8 kg (142 lb 12 oz) 07/09/2022 4:04 PM CDT Height - - Body Mass Index 25.45 03/07/2021 2:46 PM CDT documented in this encounter Progress Notes Stephanie Razo, L.P.N. - 07/09/2022 3:45 PM CDT Patient identifiers were verified and the following medication was administered to the patient today: Medroxyprogesterone (Depo-Provera). During this visit: Patient tolerated medication administration with no issues identified documented in this encounter Plan of Treatment Upcoming Encounters Date Type Specialty Care Team Description 10/08/2022 Office Visit Obstetrics and Gynecology Kamini Lnae M.D. [address], [place] [phone] (Wo rk) documented as [...] Righ t Ventrogluteal Given 01/18/2022 4:10 PM CROP RANCH HAND 150 mg Right Ventrogluteal documented in this encounter Additional Health Concerns Assessment Noted Time PHQ-9 Depression Total Score: 10 08/09/2021 9:11 AM CD T documented as of this encounter
--- OUTSIDE RECORDS SUMMARY | 2022-09-10 00:54 | XMS_ITS | Encounter Summary ---
:1990 Author Organization [facility] Address [address] [place] [address] Care Team Providers Name Role Phone Unavailable Primary Care Provider Unavailable Encounter Details Date Type Department Care Team Description 08/26/2022 Clinical Communication Department of Aurea Omer, Obstetrics and RCallie Gynecology in [address] [phone] Social History Tobacco Use Types Packs/Day Years [...] week 08/15/2022 How often do you attend amish or advent services? Never 08/15/2022 Do you belong to any clubs or organizations such as No 08/15/2022 amish groups, unions, fraternal or athletic groups, or [...] place to sleep or slept in a custodial (including now)? Education Answer Date Recorded What is the highest level of school Bachelor's degree (e.g., BA, AB, 04/13/2021 you have completed or the highest BS) degree you have received? Sex Assigned at Date Recorded Female 08/04/2021 7:52 PM CDT documented as of this encounter Miscellaneous Notes Telephone Encounter - Aurea Omer R.N. - 08/26/2022 1:22 PM CDT See lab result note from 08/26. Telephone Encounter - Saray Lane M.D. - 08/26/2022 1:12 PM CDT Please see result note sent to pooling operator and advise patient appropriately. Thanks! Telephone Encounter - Aurea Omer R.N. - 08/26/2022 12:25 PM CDT SUBJECTIVE CHIEF COMPLAINT / REASON FOR CALL Pap/HPV results Pt had Pap/HPV testing completed on 08/19/22. She saw the results on her portal but is not sure how to interpret. PLAN The following information was provided: Dr. Lane has not yet acknowledged results. Note to provider. Information/Education: patient/caller able to teach back The following references were used: nursing clinical judgement documented in this encounter Plan of Treatment Upcoming Encounters Date Type Specialty Care Team Description 10/08/2022 Office Visit Obstetrics and Gynecology Kamini Lane M.D. [address] [place], [place] [phone] (Wo rk) documented as of this encounter Visit Diagnoses Not on filedocumented in this encounter Additional Health Concerns Assessment Noted Time PHQ-9 Depression Total Score: 8 08/19/2022 2:30 PM CDT documented as of this encounter
--- OUTSIDE RECORDS SUMMARY | 2022-09-10 00:54 | XMS_ITS | Encounter Summary ---
:1990 Author Organization [facility] Address [address] [place] [address] Care Team Providers Name Role Phone Unavailable Primary Care Provider Unavailable Reason for Visit Reason Comments Routine Visit Outpatient (Routine) - Closed Specialty Diagnoses / Procedures Referred By Contact Refer red To Contact Obstetrics and Diagnoses Examination Normal First Third Trimester ([facility]) MARLENE Lane [facility] Gynecology Yony So [address] [place] [address] Referral ID Status Reason Start Date Expiration Date Visits Requ ested Visits Authorized [id number] Closed 05/29/2021 05/29/2022 1 1 Encounter Details Date Type Department Care Team Description 06/19/20[address]ine [address] of Ap[address]va [address] Normal First Third Trimester (Primary Dx); Obstetrics and Yony So Anxiety; Gynecology in [address] [facility] ([facility]); [place], [place] Depressive Disorder; [address] [address] Heartburn; [place], [place] [phone] Tobacco Use; [address] (Work) Vaginal Bleeding Third Trimest er; [phone] Discrepancy Rhiannon rine Size Date (Fax) Social History Tobacco [...] week 08/15/2022 How often do you attend faith or restorationism services? Never 08/15/2022 Do you belong to any clubs or organizations such as No 08/15/2022 faith groups, unions, fraternal or athletic groups, or [...] place to sleep or slept in a [place] [facility] (including now)? Education Answer Date Recorded What is the highest level of school Bachelor's degree (e.g., BA, AB, 04/13/2021 you have completed or the highest BS) degree you have received? Sex Assigned at Date Recorded Female 08/04/2021 7:52 PM CDT documented as of this encounter Last Filed Vital Signs Vital Sign Reading Time Taken Comments Blood Pressure 120/68 06/19/2021 3:54 PM CDT Pulse - - Temperature - - Respiratory Rate - - Oxygen Saturation - - Inhaled Oxygen Concentration - - Weight 73.2 kg (161 lb 7.8 oz) 06/19/2021 3:54 PM CDT Height - - Body Mass Index 28.79 03/07/2021 2:46 PM CDT documented in this encounter Progress Notes Saray Lane M.D. - 06/19/2021 4:00 PM CDT SUBJECTIVE She continues to have focal areas of abdominal tightening, not regular or painful, possibly contractions. This is related to the baby pushing. This has not changed. SYSTEMS REVIEW All other systems reviewed and are negative. OBJECTIVE Vitals: 06/19/21 1554 BP: 120/68 Weight: 73.2 kg PHYSICAL EXAM GEN: NAD Lower Extremities: NT, trace edema ASSESSMENT / PLAN Bri Finch is a 31 y.o. female at 39w2d by last menstrual period consistent with first trimester ultrasound who presents for OBFU. #1 Examination Normal First Third Trimester Overview: with EDC 06/24/2021. Transfer of care from [place] at 24 weeks gestation, she transferred there from [facility] CONTACT CENTRE SUPERVISOR. Have received her medical records from [place] but not her anatomy US report, she signed request for records from [facility] CONTACT CENTRE SUPERVISOR at 36 weeks. They sent her visit notes but not her new OB labs and 1st trimester US. 4 cm dilated with bulging bag of water. To Center today for induction of labor. Orders: - Obstetrics and Gynecology office visit [...] (HCC) Overview: Under good control. Sees a surgical elastic knitter hand frame at [facility] for continued care. #4 Depressive Disorder Overview: Discontinued Lexapro due to decreased movement. Managing symptoms effectively with therapy. Will start medication at the time of delivery. #5 Heartburn Overview: Symptoms are managed with omeprazole, though her symptoms have returned a little as of late. #6 Tobacco Use Overview: 5-6/day, and trying [...] of 2453 gm, which is 28th%ile Followup: To the Center for induction of labor. documented in this encounter Plan of Treatment Upcoming Encounters Date Type Specialty Care Team Description 10/08/2022 Office Visit Obstetrics and Gynecology Kamini Lane M.D. [address] [place] [phone] (Wo rk) documented as of [...]
--- OUTSIDE RECORDS SUMMARY | 2022-09-10 00:54 | XMS_ITS | Encounter Summary ---
:1990 Author Organization [facility] Address [address] [place] [address] Care Team Providers Name Role Phone Unavailable Primary Care Provider Unavailable Reason for Visit Appointment Request (Routine) - Closed Specialty Diagnoses / Procedures Referred By Contact Refer red To Contact Obstetrics and Gynecology Referral ID Status Reason Start Date Expiration Date Visits Requ ested Visits Authorized [id number] Closed 05/22/2021 05/22/2022 1 1 Encounter Details Date Type Department Care Team Description 06/05/2021 Routine Department of Apurva Lane Normal First Third Trimester (Primary Dx); Obstetrics and Yony So Anxiety; Gynecology in [address] [facility] ([facility]); [place], [place] Depressive Disorder; [address] [address] Heartburn; [place], [place] [phone] Tobacco Use; [address] (Work) Vaginal Bleeding Third Trimest er; [phone] Discrepancy [place] rine Size Date (Fax) Social History Tobacco [...] week 08/15/2022 How often do you attend samaritan or orthodoxy services? Never 08/15/2022 Do you belong to any clubs or organizations such as No 08/15/2022 samaritan groups, unions, fraternal or athletic groups, or [...] Sign Reading Time Taken Comments Blood Pressure 114/58 06/05/2021 3:08 PM CDT Pulse - - Temperature - - Respiratory Rate - - Oxygen Saturation - - Inhaled Oxygen Concentration - - Weight 71.6 kg (157 lb 11.8 oz) 06/05/2021 3:08 PM CDT Height - - Body Mass Index 28.12 03/07/2021 2:46 PM CDT documented in this encounter Progress Notes Saray Lane M.D. - 06/05/2021 3:00 PM CDT SUBJECTIVE She also has focal areas of abdominal tightening, not regular or painful, possibly contractions. SYSTEMS REVIEW All other systems reviewed and are negative. OBJECTIVE Vitals: 06/05/21 1508 BP: 114/58 Weight: 71.6 kg PHYSICAL EXAM GEN: NAD Lower Extremities: NT, trace edema ASSESSMENT / PLAN Bri Finch is a 31 y.o. female at 37w2d by last menstrual period consistent with first trimester ultrasound who presents for OBFU. #1 Examination Normal First Third Trimester Overview: with EDC 06/24/2021. Transfer of care from [place] at 24 weeks gestation, she transferred there from [facility] MACHINE MAINTENANCE TECHNICIAN. Have received her medical records from [place] but not her anatomy US report, she signed request for records from [facility] MACHINE MAINTENANCE TECHNICIAN 1 week ago, at 36 weeks and we still do not have records. Will have RN check into this, as we do not have new OB labs or first trimester US report. #2 Anxiety Overview: Discontinued Lexapro due to [...] (HCC) Overview: Under good control. Sees a regulatory compliance specialist at [facility] for continued care. #4 Depressive Disorder [...] Gynecology Kamini Lane M.D. [address] [place], [place] [phone] (Wo rk) documented as of this encounter Visit Diagnoses Diagnosis Examination Normal First Pregna ncy Third Trimester (HCC) - Primary Anxiety Colitis Ulcerative (HCC) Depressive Disorder Heartburn Tobacco Use Vaginal Bleeding Third Trimest er ([facility]) Discrepancy Uterine Size Date ([facility]) documented in this encounter Additional Health Concerns Assessment Noted Time PHQ-9 Depression Total Score: 8 04/03/2021 3:31 PM CDT documented as of this encounter
--- OUTSIDE RECORDS SUMMARY | 2022-09-10 00:54 | XMS_ITS | Encounter Summary ---
:1990 Author Organization [facility] Address [address] [place] [address] Care Team Providers Name Role Phone Unavailable Primary Care Provider Unavailable Encounter Details Date Type Department Care Team Description 05/22/2021 Silent Schedule Department of Obstetrics [place], and Gynecology in [place], [place] [address] [phone] (Wo rk) Social History Tobacco Use Types Packs/Day Years [...] week 08/15/2022 How often do you attend denominational or mosque services? Never 08/15/2022 Do you belong to any clubs or organizations such as No 08/15/2022 denominational groups, unions, fraternal or athletic groups, or [...] place to sleep or slept in a senior living (including now)? Education Answer Date Recorded What [...] Obstetrics and Gynecology Kamini Lane M.D. [address] [phone] (Wo rk) documented as [...] located with the images in [employer]reads. Saray BURGOS OB US PROCEDURES documented in this encounter Visit Diagnoses Not on filedocumented in this encounter Additional Health Concerns Assessment Noted Time PHQ-9 Depression Total Score: 8 04/03/2021 3:31 PM CDT documented as of this encounter
--- OUTSIDE RECORDS SUMMARY | 2022-09-10 00:54 | XMS_ITS | Encounter Summary ---
:1990 Author Organization [facility] Address [address] [place] [address] Care Team Providers Name Role Phone Unavailable Primary Care Provider Unavailable Reason for Visit Reason Comments Routine Visit Appointment Request (Routine) - Closed Specialty Diagnoses / Procedures Referred By Contact Refer red To Contact Obstetrics and Gynecology Referral ID Status Reason Start Date Expiration Date Visits Requ ested Visits Authorized [id number] Closed 04/03/2021 04/03/2022 1 1 Encounter Details Date Type Department Care Team Description 05/07/2021 Routine Department of Domingo, Encounter For Supervision Of Normal First Unspecified Trimester (Primary Dx); Obstetrics and Yony So Anxiety; Gynecology in [address] [facility] [place], [place] Depressive Disorder; [address] [facility] [place] [address] Heartburn; [place], [place] [phone] Tobacco Use; [id number] (Work) [facility]inal [facility] [phone] Social History Tobacco Use Types Packs/Day Years [...] week 08/15/2022 How often do you attend shinto or worship services? Never 08/15/2022 Do you belong to any clubs or organizations such as No 08/15/2022 shinto groups, unions, fraternal or athletic groups, or [...] place to sleep or slept in a intermediate (including now)? Education Answer Date Recorded What is the highest level of school Bachelor's degree (e.g., BA, AB, 04/13/2021 you have completed or the highest BS) degree you have received? Sex Assigned at Date Recorded Female 08/04/2021 7:52 PM CDT documented as of this encounter Last Filed Vital Signs Vital Sign Reading Time Taken Comments Blood Pressure 113/73 05/07/2021 2:03 PM CDT Pulse - - Temperature - - Respiratory Rate - - Oxygen Saturation - - Inhaled Oxygen Concentration - - Weight 70.1 kg (154 lb 10.4 oz) 05/07/2021 2:03 PM CDT Height - - Body Mass Index 27.57 03/07/2021 2:46 PM CDT documented in this encounter Progress Notes Saray Lane M.D. - 05/07/2021 1:45 PM CDT SUBJECTIVE Was admitted for observation on 04/28/2021 for vaginal bleeding after intercourse and found to be 2 cm dilated with no change during observation. She was given BMZ x 1 during the admission and was to return for the 2nd injection. She has had several mild irregular contractions since then. She has a feeling of sadness when her nipples are stimulated. SYSTEMS REVIEW Genitourinary: Positive for abnormal vaginal bleeding. All other systems reviewed and are negative. OBJECTIVE Vitals: 05/07/21 1403 BP: 113/73 Weight: 70.1 kg PHYSICAL EXAM GEN: NAD Lower Extremities: NT, no edema ASSESSMENT / PLAN Bri Finch is a 31 y.o. female at 33w1d by last menstrual period consistent with first trimester ultrasound who presents for OBFU. #1 Encounter For Supervision Of Normal First Unspecified Trimester Overview: with [facility] 06/24/2021. Transfer of care from [place] at 24 weeks gestation, she transferred there from [facility]. Have received her medical records from [place] but not her anatomy US report, will need to request records from [facility], as we do not have new OB labs or first trimester US report. #2 Anxiety Overview: Discontinued Lexapro due to decreased movement. Managing symptoms effectively with therapy. Last PHQ-9 score was 8 on 04/03/2021, feeling of sadness with breast stimulation. I will research this further. #3 Colitis Ulcerative (HCC) Overview: Under good control. Sees a nurse epidemiologist at [facility] for continued care. #4 Depressive Disorder Overview: Discontinued Lexapro due to decreased movement. Managing symptoms effectively with therapy. #5 Heartburn Overview: Symptoms are well managed with omeprazole. #6 Tobacco Use Overview: 5-6/day, and trying to quit. #7 Vaginal Bleeding Third Trimester Overview: Admitted for observation for this. Cx 2 cm dilated. Occurred with intercourse. No bleeding since. Was given at least 1 dose of BMZ during the admission. The plan was for her to return the next day for the 2nd dose, but it is unclear if she returned. No further symptoms. Advised to continue pelvic restuntil 36 weeks. Followup: 2 weeks for OBFU. documented in this encounter Plan of Treatment Upcoming Encounters Date Type Specialty Care Team Description 10/08/2022 Office Visit Obstetrics and Gynecology Kamini Lane M.D. [address], [place] [phone] (Wo rk) documented as of this encounter Visit Diagnoses Diagnosis Encounter For Supervision Of Normal Firs t Unspecified Trimester (HCC) - Primary Anxiety Colitis Ulcerative (HCC) Depressive Disorder Heartburn Tobacco Use Vaginal Bleeding [facility] ([facility] documented in this encounter Additional Health Concerns Assessment Noted Time PHQ-9 Depression Total Score: 8 04/03/2021 3:31 PM CDT documented as of this encounter
--- OUTSIDE RECORDS SUMMARY | 2022-09-10 00:55 | XMS_ITS | Encounter Summary ---
:1990 Author Organization [facility] Address [address] [place] [address] Care Team Providers Name Role Phone Unavailable Primary Care Provider Unavailable Encounter Details Date Type Department Care Team Description 04/04/2021 Orders Only Department of Vick Yee, Encounter For Obstetrics and M.D. Supervision Of Normal Gynecology in [address] [place] [address] First [place], [place] Unspecified Trimester [address] [facility] [address] (Primary Dx) [place], [place] [phone] [address] (Work) [phone] Social History Tobacco Use Types Packs/Day Years [...] week 08/15/2022 How often do you attend latter-day or mormonism services? Never 08/15/2022 Do you belong to any clubs or organizations such as No 08/15/2022 latter-day groups, unions, fraternal or athletic groups, or [...] or slept in a intermediate (including now)? Sex Assigned at Date Recorded Female 08/04/2021 7:52 PM CDT documented as of this encounter Plan of Treatment Upcoming Encounters Date Type Specialty Care Team Description 10/08/2022 Office Visit Obstetrics and Gynecology Kamini Lnae M.D. [address] [place], [place] [phone] (Wo rk) documented as of this encounter Results Glucose Tolerance, 3 Hours (04/06/2021 9:12 AM CDT) [facility] gist Method Time Signature Glucose Tonia, 76 Not Applicable 04/06/2021 [place] Baseline, P mg/dL 11:18 AM CDT Glucose Tonia, 1 105 Not Applicable 04/06/2021 [place] hr, P mg/dL 1:49 PM CDT Glucose Tonia, 2 144 Not Applicable 04/06/2021 [place] hr, P mg/dL 1:49 PM CDT Glucose Tonia, 3 132 Not Applicable 04/06/2021 [place] hr, P mg/dL 1:49 PM CDT Specimen Anatomical Collection Method Collection Time Receive d Time (Source) Location / / Volume Laterality Blood (Blood, 04/06/2021 9:12 AM 04/06/20 21 Venous) CDT 10:48 AM CDT Narrative [facility] - 04/06/2021 1:49 PM CDT Specimen Information: Specimen ID: [id number] Specimen Type: Blood Specimen Collection Start Date: 04/06/20 21 ??9:12 AM Specimen Received Date: 04/06/2021 10:48 AM Specimen ID: [id number] Specimen Type: Blood Specimen Collection Start Date: 04/06/20 10:16 AM Specimen Received Date: 04/06/2021 ??1:2 7 PM Specimen ID: [id number] Specimen Type: Blood Specimen Collection Start Date: 04/06/20 11:16 AM Specimen Received Date: 04/06/2021 ??1:2 7 PM Specimen ID: [id number] Specimen Type: Blood Specimen Collection Start Date: 04/06/20 12:17 PM Specimen Received Date: 04/06/2021 ??1:2 7 PM Vick Yee M.D. LAB BLOOD NON ADD-ON Performing Organization Address City/State/ZIP Code Phon e Number [facility] [address] [place] [address] [place] [address] System in [place] [address] documented in this encounter Visit Diagnoses Diagnosis Encounter For Supervision Of Normal Firs t Unspecified Trimester (HCC) - Primary Encounter For Supervision Of Normal Firs t Unspecified Trimester (HCC) documented in this encounter Additional Health Concerns Assessment Noted Time PHQ-9 Depression Total Score: 8 04/03/2021 3:31 PM CDT documented as of this encounter
--- OUTSIDE RECORDS SUMMARY | 2022-09-10 00:55 | XMS_ITS | Encounter Summary ---
:1990 Author Organization [facility] Address [address] [place] [address] Care Team Providers Name Role Phone Unavailable Primary Care Provider Unavailable Reason for Referral Specialty Diagnoses / Procedures Referred By Contact Refer red To Contact Selina Locke APRN, C.N.PJame [facility] [address] [place] [address] Referral ID Status Reason Start Date Expiration Date Visits Requ ested Visits Authorized Reason for Visit Reason Comments Routine Visit [facility] Outpatient (Routine) - Closed Specialty Diagnoses / Procedures Referred By Contact Refer red To Contact Obstetrics and Selina Locke [facility] Gynecology ANCELMO, C.N.P. [address] [place] [address] Referral ID Status Reason Start Date Expiration Date Visits Requ ested Visits Authorized [id number] Closed 02/28/2021 02/28/2022 1 1 Encounter Details Date Type Department Care Team Description 03/07/2021 Routine Department of Selina Locke For Supervision Of Normal First Unspecified Trimester (Primary Dx); Obstetrics and ANCELMO Moncada, C.N.P. Depressive Disorder; Gynecology in [address] Anxiety; [place], [place] Fatigue; [address] [address] Heartburn; [place], [place] [phone] Tobacco Use [address] (Work) [phone] Social History Tobacco Use Types Packs/Day Years Used Date Smoking Tobacco: Every Day Smokeless Tobacco: Never Alcohol Habits Answer Date Recorded How often [...] week 08/15/2022 How often do you attend baptist or nondenominational services? Never 08/15/2022 Do you belong to any clubs or organizations such as No 08/15/2022 baptist groups, unions, fraternal or athletic groups, or [...] place to sleep or slept in a chcf (including now)? Sex Assigned at Date Recorded Female 08/04/2021 7:52 PM CDT documented as of this encounter Last Filed Vital Signs Vital Sign Reading Time Taken Comments Blood Pressure 104/60 03/07/2021 2:42 PM CDT Pulse - - Temperature - - Respiratory Rate - - Oxygen Saturation - - Inhaled Oxygen Concentration - - Weight 70.2 kg (154 lb 12.2 oz) 03/07/2021 2:42 PM CDT Height 159.5 cm (5' 2.8) 03/07/2021 2:46 PM CDT Body Mass Index 27.59 03/07/2021 2:42 PM CDT documented in this encounter Progress Notes Selina Locke APRN, C.N.P. - 03/07/2021 3:00 PM CDT OBJECTIVE PHYSICAL EXAM General: She is a well appearing female in no acute distress. HEENT: Hearing vision are grossly intact. Extremities: No peripheral edema edema bilaterally. ASSESSMENT / PLAN Bri Finch is a 30 y.o. female at 24w3d who presents for routine OB follow-up. #1 Encounter For Supervision Of Normal First Unspecified Trimester Overview: with [facility] 06/24/2021. Transfer of care from [place] at 24 weeks gestation. Have not received her medical records yet. Request sent. Instructed to follow up in 4 weeks with OBGYN RN for 28 week follow-up visit, labs, immunization, and Education. She would like to see Dr. Lane as her primary overhead cleaner going forward. Orders: - Obstetrics and Gynecology - Nurse OB education visit (clinic); Future; Expected date: 04/06/2021 #2 Depressive Disorder Overview: Initiate lexapro 03/07/2021 for PHQ-9 score of 12. Recheck at 28 wks. Also looking to into therapy. #3 Anxiety Overview: Initiated Lexapro 10 mg daily. #4 Fatigue Overview: Initated lexapro, recheck at 28 wks. Would obtain TSH and Vit. D at 28 wks if not improving. #5 Heartburn Assessment & Plan: Tums has been ineffective. Initiated omeprazole 20 mg daily. Orders: - omeprazole (PriLOSEC) [address] capsule; Take 1 capsule (20 mg total) by mouth daily., Starting Fri03/07/2021, Normal #6 Tobacco Use Overview: 5-6 cig./day, and trying to quit. Other orders - Obstetrics and Gynecology office visit (clinic) - escitalopram (LEXAPRO) 10 mg tablet; Take 1 tablet (10 mg total) by mouth daily. (Start with 1/2 tab daily for 7 days, then full tab daily.), Starting Fri03/07/2021, Normal Followup: 04/03/2021 with OBGYN RN. documented in this encounter Miscellaneous Notes Assessment & Plan Note - Selina Locke APRN, C.N.P. - 03/07/2021 4:21 PM CDTAssociated Problem(s): Heartburn (Deleted) Tums has been ineffective. Initiated omeprazole 20 mg daily. documented in this encounter Plan of Treatment Upcoming Encounters Date Type Specialty Care Team Description 10/08/2022 Office Visit Obstetrics and Gynecology Kamini Lane M.D. [address] [place], [place] [phone] (Wo rk) Scheduled Referrals Name Type Priority Associated Order Schedule Diagnoses Obstetrics and Outpatient Referral Routine Normal First Expect ed: Gynecology - Nurse OB education visit (Approxim ate), (clinic) Expires: 03/07/2024 documented as of this encounter Procedures Procedure Name Priority Date/Time Associated Diagnosis Comme nts SYPHILIS TOTAL AB W/ Routine 11/23/2020 Results for this REFLEX S procedure are i n the results section . HIV-1/-2 AG AND AB Routine 11/23/2020 Results f or this SCREEN procedure are i n the results section . HBS ANTIGEN , S Routine 11/23/2020 Resu lts for this procedure are i n the results section . PARVOVIRUS B19 AB, IGG Routine 11/23/2020 Resul ts for this AND IGM procedure are i n the results section . TOXOPLASMA AB, IGM Routine 11/23/2020 Results f or this procedure are i n the results section . RUBELLA ANTIBODIES, IGG Routine 11/23/2020 Resu lts for this procedure are i n the results section . CBC WITHOUT Routine 11/23/2020 Results for thi s DIFFERENTIAL, B procedure ar e in the results section . documented in this encounter Results Parvovirus B19 Ab, IgG and IgM (11/23/2020) [employer] Method Time Signature EXT Parvovirus Negative Negative, OTHER B19 Ab, IgG, S None (SPECIFY IN detected SUSHI CHEF) EXT Parvovirus Negative Negative, OTHER B19 Ab, IgM, S None (SPECIFY IN detected SUSHI CHEF) Specimen (Source) Anatomical Location Collection Method / Collectio n Time Received Time / Laterality Volume Blood (Blood, Venous) Resulting Agency Comment [facility] February Poncho Tiwari.A.-C. LAB MICROBIOLOGY - BLOOD ORD ERABLES Performing Organization Address City/[facility] Phon e Number OTHER (SPECIFY IN SUSHI CHEF) OTHER (SPECIFY IN SUSHI CHEF) N/A Toxoplasma gondii Antibody, IgM (11/23/2020) [employer] Method Time Signature EXT Toxoplasma Negative Negative, OTHER IgM None (SPECIFY IN detected SUSHI CHEF) Specimen (Source) Anatomical Location Collection Method / Collectio n Time Received Time / Laterality Volume Blood (Blood, Venous) Resulting Agency Comment [facility] February Poncho Tiwari.A.-C. LAB MICROBIOLOGY - BLOOD ORD ERABLES Performing Organization Address City/[facility] Phon e Number OTHER (SPECIFY IN SUSHI CHEF) OTHER (SPECIFY IN SUSHI CHEF) N/A Rubella Antibodies, IgG (11/23/2020) [employer] Time Signature EXT Rubella Vaccinated: Vaccinated: OTHER Ab IGG positive positive (SPECIFY IN SUSHI CHEF) Specimen (Source) Anatomical Location Collection Method / Collectio n Time Received Time / Laterality Volume Blood (Blood, Venous) Resulting Agency Comment [facility] February Poncho Tiwari.A.-C. LAB MICROBIOLOGY - BLOOD ORD ERABLES Performing Organization Address City/[facility] Phon e Number OTHER (SPECIFY IN SUSHI CHEF) OTHER (SPECIFY IN SUSHI CHEF) N/A Syphilis Total Ab w/ Reflex, Serum (11/23/2020) [employer] Method Time Signature EXT Syphilis Nonreactiv Nonreactive OTHER Total Ab w/ e/Negative /Negative, (SPECIFY IN Reflex See Scanned SUSHI CHEF) Report Specimen (Source) Anatomical Location Collection Method / Collectio n Time Received Time / Laterality Volume Blood (Blood, Venous) Resulting Agency Comment [facility] February Poncho P.A.-C. LAB BLOOD ADD-ON Performing Organization Address City/State/[facility] Phon e Number OTHER (SPECIFY IN SUSHI CHEF) OTHER (SPECIFY IN SUSHI CHEF) N/A HIV-1/-2 Ag and Ab Screen (11/23/2020) [facility] [employer] Method Time Signature EXT HIV-1/-2 Nonreactiv Nonreactive OTHER Ag and Ab e/Negative /Negative, (SPECIFY IN Screen See Scanned SUSHI CHEF) Report Specimen (Source) Anatomical Location Collection Method / Collectio n Time Received Time / Laterality Volume Blood (Blood, Venous) Resulting Agency Comment [facility] Leisa Poncho Ayon LAB MICROBIOLOGY - BLOOD ORD ERABLES Performing Organization Address City/[facility] Phon e Number OTHER (SPECIFY IN SUSHI CHEF) OTHER (SPECIFY IN SUSHI CHEF) N/A HBs Antigen , Serum (11/23/2020) [facility] [employer] Method Time Signature EXT HBs None Negative, OTHER Antigen detected None (SPECIFY IN , S detected SUSHI CHEF) Specimen (Source) Anatomical Location Collection Method / Collectio n Time Received Time / Laterality Volume Blood (Blood, Venous) Resulting Agency Comment [facility] February Poncho LozadaCJame LAB MICROBIOLOGY - BLOOD ORD ERABLES Performing Organization Address City/[facility] Phon e Number OTHER (SPECIFY IN SUSHI CHEF) OTHER (SPECIFY IN SUSHI CHEF) N/A CBC without Differential (11/23/2020) P athologist Signature EXT Platelet 425 150 - 450 OTHER (SPECIFY Count IN SUSHI CHEF) EXT Hemoglobin 12.8 11 - 15 OTHER (SPECIFY IN SUSHI CHEF) Specimen (Source) Anatomical Location Collection Method / Collectio n Time Received Time / Laterality Volume Blood (Blood, Venous) Resulting Agency Comment [facility] February Poncho Ayon LAB BLOOD ADD-ON Performing Organization Address City/[facility] Phon e Number OTHER (SPECIFY IN SUSHI CHEF) OTHER (SPECIFY IN SUSHI CHEF) N/A documented in this encounter Visit Diagnoses Diagnosis Encounter For Supervision Of Normal Firs t Unspecified Trimester (HCC) - Primary Depressive Disorder Anxiety Fatigue Heartburn Tobacco Use documented in this encounter Additional Health Concerns Assessment Noted Time PHQ-9 Depression Total Score: 12 03/07/2021 3:13 PM CD T documented as of this encounter
--- OUTSIDE RECORDS SUMMARY | 2022-09-10 00:55 | XMS_ITS | Encounter Summary ---
:1990 Author Organization [facility] Address [address] [place] [address] Care Team Providers Name Role Phone Unavailable Primary Care Provider Unavailable Reason for Referral Outpatient (Routine) - Closed Specialty Diagnoses / Procedures Referred By Contact Refer red To Contact Obstetrics and Selina Locke [facility] Gynecology ANCELMO, C.N.P. [address] [place] [address] Referral ID Status Reason Start Date Expiration Date Visits Requ ested Visits Authorized [id number] Closed 02/28/2021 02/28/2022 1 1 Reason for Visit Reason Comments Appointment Encounter Details Date Type Department Care Team Description 02/28/2021 Clinical Communication Department of Selina Locke Obstetrics and ANCELMO Moncada, C.N.P. Gynecology in [address] [place], [place] [address] [address] [place], [place] [phone] [address] (Work) [phone] Social History Tobacco Use Types Packs/Day Years Used Date Smoking Tobacco: Every Day Alcohol Habits Answer Date Recorded How often [...] How often do you attend adventist or adventist services? Never 08/15/2022 Do you belong to [...] or slept in a assisted (including now)? Sex Assigned at Date Recorded Female 08/04/2021 7:52 PM CDT documented as of this encounter Miscellaneous Notes Telephone Encounter - Tasha Cerda, Lew - 02/28/2021 11:43 AM CDT Reason for call: initiate care- started care with [facility], will have records faxed to [facility] History: LMP: 09/17/2020 Gestational Age: 23+3 weeks RK: 06/24/2021 : 1 Para: 0 Miscarriage: 0 Termination: 0 Stillbirth: 0 Assessment: Any symptoms or concerns? Has been feeling well overall, has felt some uterine tightening that she felt all day long. Denies any pain or cramping, VB or LOF. movement is present and active. Has been seen in [facility] for routine care. Last appt was 01/29 where anatomy US was completed. She reports a normal scan. Advised to let us know if uterine tightening becomes regular or with any LOF or VB. Delivery History: NA Any previous weight 4000 gm(8 lb 8 oz) or greater? No Have you had any of the following? Previous tubal ? No Diabetes or diabetes in ? NA Do you have a first degree relative with DM? No High blood pressure or high blood pressure in ? NA Previous blood clots? No Any kidney or liver disease? No Any heart problems? No Received treatment for cancer? No Chronic Illness (PCOS, Thyroid, Hyperlipidemia): Ulcerative Colitis Any blood transfusions or organ transplant prior to 06/1992? No Medications: PNV Seasonal Flu Shot: Denies Tobacco Use: Cigarettes, 4-6 per day, cessation encouraged PLAN New OB packet has been mailed- will give at 1st appt Disposition/Recommendation: patient transferred to the appointment desk Information/Education: patient/caller able to teach back Caller agreeable to plan of care: yes The following references were used: Nursing Clinical Judgement Telephone Encounter - Sylvie Hu - 02/28/2021 9:25 AM CDT Reason for Communication: Patient is 23 weeks along, and would like to start her care with us. Patient is needing to be triaged.Patient stated that she is working on getting her records transferred over as well. Please advise. Current Can Nursing/Provider leave a detailed message?: yes Did the patient refuse triage through Nurse line? (for symptom based concerns): na Action Needed: Please advise Name of Medication (if relevant): na documented in this encounter Plan of Treatment Upcoming Encounters Date Type Specialty Care Team Description 10/08/2022 Office Visit Obstetrics and Gynecology Kamini Lane M.D. [address] [place], [place] [phone] (Wo rk) Scheduled Referrals Name Type Priority Associated Order Schedule Diagnoses Obstetrics and Outpatient Referral Routine Expect ed: Gynecology office 02/28/2021 visit (clinic) (Approximate) , Expires: 02/29/2024 documented as of this encounter Visit Diagnoses Not on filedocumented in this encounter
--- OUTSIDE RECORDS SUMMARY | 2022-09-10 00:55 | XMS_ITS | Encounter Summary ---
:1990 Author Organization [facility] Address [address] [place] [address] Care Team Providers Name Role Phone Unavailable Primary Care Provider Unavailable Reason for Visit Reason Comments Routine Visit 28+2 weeks Nurse Visit OB EDU Encounter Details Date Type Department Care Team Description 04/03/2021 Routine Department of Kirstie Locke APRN, C.N.P. [address] [address] Encounter For Obstetrics and Tasha Cerda, RJameN. [address] [address] Supervision Of Gynecology in Normal [place], [place] [address] Unspecified [place], [place] Trimester [id number] Social History Tobacco Use Types Packs/Day [...] week 08/15/2022 How often do you attend judaism or catholic services? Never 08/15/2022 Do you belong to any clubs or organizations such as No 08/15/2022 judaism groups, unions, fraternal or athletic groups, or [...] or slept in a mcc (including now)? Sex Assigned at Date Recorded Female 08/04/2021 7:52 PM CDT documented as of this encounter Last Filed Vital Signs Vital Sign Reading Time Taken Comments Blood Pressure 112/68 04/03/2021 2:47 PM CDT Pulse - - Temperature - - Respiratory Rate - - Oxygen Saturation - - Inhaled Oxygen Concentration - - Weight 69.7 kg (153 lb 8.8 oz) 04/03/2021 2:47 PM CDT Height - - Body Mass Index 27.37 03/07/2021 2:46 PM CDT documented in this encounter Progress Notes Tasha Cerda R.N. - 04/03/2021 3:00 PM CDT S: Patient states she is feeling well. She has not had cramping, has not had nausea, has not had vomiting, has not, vaginal bleeding, leaking of fluid, or contractions. She stated movement is present and active. She has been having worsening lower back pain that has become worse with certain movements and better with rest. She has no other concerns today. REVIEW OF SYSTEMS: General: No fever, chills, fatigue, unintentional weight loss, or weight gain HEENT: No sore throat, nasal congestion, changes in vision or changes in hearing Cardiovascular: No chest pain, irregular heartbeat or racing heart Respiratory: No shortness of breath, cough, or wheezing Gastrointestinal: No nausea, vomiting, diarrhea, constipation or abdominal pain Genitourinary: No leaking urine, pain with urination, burning with urination, irregular vaginal bleeding, heavy periods, painful periods, abnormal vaginal discharge or leaking gas or stool Skin: No rashes or skin lesions Breasts: No masses or lumps, positive for discharge from the nipples Neuro: No difficulty with memory, numbness, tingling, or falls Psych: No anxiety, depression or difficulty sleeping Endocrine: No excessive thirst, hair loss, intolerance of heat or cold A/P: 30 y.o. at 28w2d who presents for OB follow up and third trimester OB education. 1.) 28 week labs were ordered and obtained 04/03/21. We will contact her with results. 2.) TDAP was administered 04/03/21. She tolerated this well. 3.) Depression screening was completed and her PHQ-9 score was 8, answering no to question 9. Good communication encouraged. Advised to contact us with any worsening mood concerns. She stated that she stopped taking Rx Lexapro shortly after initiating this as she had noticed decreased movement. She stated that she started to see a therapist and feels better today. 4.) Anticipated course of care, movement monitoring, labor signs, signs and symptoms of preeclampsia, postterm counseling, and depression were all discussed in detail. 5.) Anesthesia plans discussed. She is planning on an epidural and this procedure was discussed in detail. Non-medication pain relief options were also discussed in detail. 6.) education was discussed in detail, including safe sleeping positions/ SIDS, medications, and screening. [place] provider is on-call. She is having a girl. She is planning tobreastfeed but undecided if she is going to bottle feed.. Signs and symptoms of mastitis were also reviewed. 7.) family planning was reviewed and she is planning on depo provera. Methods of control were also reviewed. 8.) MDH identification of lead exposure was completed and no risks were identified. 9.) She has been having worsening lower back pain that has become worse with certain movements and better with rest. She has tried Tylenol and a support band with no relief. She was given handouts on back exercises and fitted with a maternity support belt. Advised to continue with comfort cares and let us know if this worsens. 10.) Pre-registration was completed and sent to [facility] for processing. 2nd/3rd Trimester education provided today using the ACOG list of recommended antepartum education topics and in accordance with [facility] guidelines. Patient states understanding to all topics presented. All questions answered during appointment. Written information regarding topics presented provided for patient to take home. Please see education tab for further details about topics addressed. documented in this encounter Plan of Treatment Upcoming Encounters Date Type Specialty Care Team Description 10/08/2022 Office Visit Obstetrics and Gynecology Kamini Lane M.D. [address] [place], [place] [phone] (Wo rk) documented as of this encounter Procedures Procedure Name Priority Date/Time Associated Diagnosis Comme nts SYPHILIS TOTAL AB Routine 04/03/2021 3:58 PM Encounter For Res ults for this W/ REFLEX S CDT Supervision Of procedure are in Normal First the results section. Unspecified Trimester GLUCOSE TONIA, 1HR, Routine 04/03/2021 3:58 PM Encounter For Res ults for this S/P CDT Supervision Of procedure are in Normal First the results section. Unspecified Trimester CBC WITHOUT Routine 04/03/2021 3:58 PM Encounter For Results for this DIFFERENTIAL, B CDT Supervision Of procedure are in Normal First the results section. Unspecified Trimester documented in this encounter Results Syphilis Total Ab w/ Reflex, Serum (04/03/2021 3:58 PM CDT) [facility] Method Time Signature Syphilis Nonreactive Nonreactive 04/04/2021 [facility] Total Ab w/ 2:51 PM CDT Reflex Comment: No serologic evidence of infection with T. pallidum (syphilis). ??Repeat testing may be cons idered in patients with suspected acute or primary syphilis in 2-4 weeks. For additional information on interpreta tion of the syphilis reverse algorithm and resul ts, see: [email or web address] df Specimen Anatomical Collection Method Collection Time Receive d Time (Source) Location / / Volume Laterality Blood (Blood, 04/03/2021 3:58 PM 04/04/20 21 Venous) CDT 11:44 AM CDT Vick Yee M.D. LAB BLOOD ADD-ON Performing Organization Address City/State/ZIP Code Phon e Number [facility]- [address] [facility] [place], [place] [address] [place] [place] [address] System in [place] [address] [facility] Glucose Tolerance Test, 1 hour (04/03/2021 3:58 PM CDT) P athologist Signature Glucose Tonia, 1 153 <140 mg/dL 04/03/2021 [place], P 6:46 PM CDT Specimen Anatomical Collection Method Collection Time Receive d Time (Source) Location / / Volume Laterality Blood (Blood, 04/03/2021 3:58 PM 04/03/20 6:03 Venous) CDT PM CDT Vick Yee M.D. LAB BLOOD NON ADD-ON Performing Organization Address City/State/ZIP Code Phon e Number [facility]- [address] [place] [facility] [place] [address] [place] [address] System in [place] [address] [facility] (ABNORMAL) CBC without Differential (04/03/2021 3:58 PM CDT) [facility] Method Time Signature Hemoglobin 11.6 11.6 - 04/03/2021 FB60 15.0 g/dL 4:09 PM CDT Hematocrit 34.3 (L) 35.5 - 04/03/2021 FB60 44.9 % 4:09 PM CDT Erythrocytes 3.89 (L) 3.92 - 04/03/2021 FB60 5.13 4:09 PM CDT x10(12)/L MCV 88.2 78.2 - 04/03/2021 FB60 97.9 fL 4:09 PM CDT RBC Distrib Width 13.1 12.2 - 04/03/2021 FB60 16.1 % 4:09 PM CDT Platelet Count 382 (H) 157 - 371 04/03/2021 FB60 x10(9)/L 4:09 PM CDT Leukocytes 14.2 (H) 3.4 - 9.6 04/03/2021 FB60 x10(9)/L 4:09 PM CDT Specimen Anatomical Collection Method Collection Time Receive d Time (Source) Location / / Volume Laterality Blood (Blood, 04/03/2021 3:58 PM 04/03/20 3:59 Venous) CDT PM CDT Vick Yee M.D. LAB BLOOD ADD-ON Performing Organization Address City/State/ZIP Code Phon e Number [address] [place] [address] System [address] documented in this encounter Visit Diagnoses Diagnosis Encounter For Supervision Of Normal Firs t Unspecified Trimester (HCC) documented in this encounter Additional Health Concerns Assessment Noted Time PHQ-9 Depression Total Score: 8 04/03/2021 3:31 PM CDT documented as of this encounter
--- OUTSIDE RECORDS SUMMARY | 2022-09-10 00:55 | XMS_ITS | Encounter Summary ---
:1990 Author Organization [facility] Address [address] [place] [address] Care Team Providers Name Role Phone Unavailable Primary Care Provider Unavailable Encounter Details Date Type Department Care Team Description 06/16/2015 Hospital Encounter HX NO MAPPING Social History Tobacco Use Types Packs/Day Years Used Date Smoking Tobacco: Never Assessed Alcohol Habits Answer Date Recorded How often [...] week 08/15/2022 How often do you attend muslim or scientologist services? Never 08/15/2022 Do you belong to any clubs or organizations such as No 08/15/2022 muslim groups, unions, fraternal or athletic groups, or [...] place to sleep or slept in a fci (including now)? Sex Assigned at Date Recorded Female 08/04/2021 7:52 PM CDT documented as of this encounter Plan of Treatment Upcoming Encounters Date Type Specialty Care Team Description 10/08/2022 Office Visit Obstetrics and Gynecology Kamini Lane M.D. [address] [place], [place] [phone] (Wo rk) documented as of this encounter Visit Diagnoses Not on filedocumented in this encounter
--- OUTSIDE RECORDS SUMMARY | 2022-09-10 00:55 | XMS_ITS | Encounter Summary ---
:1990 Author Organization [facility] Address [address] [place] [address] Care Team Providers Name Role Phone Unavailable Primary Care Provider Unavailable Encounter Details Date Type Department Care Team Description 03/22/2021 Clinical Communication Department of Maria R Milan Obstetrics and C, RJameNJame Gynecology in [phone] [place], [place] (Work) [address] [place] [address] Social History Tobacco Use Types Packs/Day [...] week 08/15/2022 How often do you attend taoist or scientology services? Never 08/15/2022 Do you belong to any clubs or organizations such as No 08/15/2022 taoist groups, unions, fraternal or athletic groups, or [...] place to sleep or slept in a group home (including now)? Sex Assigned at Date Recorded Female 08/04/2021 7:52 PM CDT documented as of this encounter Miscellaneous Notes Telephone Encounter - Funmilayo Morales R.N. - 03/22/2021 2:20 PM CDT PLAN The following information was provided: Selina's recommendations. 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 Information/Education: patient/caller able to teach back The following references were used: provider Selina Locke Telephone Encounter - Selina Locke APRN, C.N.P. - 03/22/2021 2:13 PM CDT Please let patient know that she should continue to monitor movement. She can also use her many Doppler to confirm that baby's heart rate is between 110 and 160. If she notes persistent decreased fetalmovement or heart rate out of the normal range, she should report to the hospital for further evaluation. Medication can have effects on movement as well. Please let me know if she has any other questions. Thanks Telephone Encounter - Maria R Milan R.N. - 03/22/2021 2:08 PM CDT SUBJECTIVE Bri Finch is a [address] Lane. She is 26w4d today, and a . Patient's last menstrual period was 09/17/2020 (exact date).. Her Blood type is unknown Next OB appt is 04/03 CHIEF COMPLAINT / REASON FOR CALL Decreased movement ASSESSMENT Patient calls with concerns that she has felt less movement. She states that for the last few days she has not felt her baby move the same as before. Her baby is most active at night time so she is having positive movement but states that there are days where she won't feel baby move until nighttime. She believes that this has been going on since she started her Lexapro 5mg, wondering if it could be related. PLAN Advised patient to continue to monitor as baby's do fall into a schedule as they age. Will forward to provider for recommendations. Disposition/Recommendation: notified provider and awaiting recommendations. Information/Education: patient/caller able to teach back. Caller agreeable to plan of care: yes. The following references were used: nursing clinical judgement. documented in this encounter Plan of Treatment Upcoming Encounters Date Type Specialty Care Team Description 10/08/2022 Office Visit Obstetrics and Gynecology Kamini Lane M.D. [address] [phone] (Wo rk) documented as of this encounter Visit Diagnoses Not on filedocumented in this encounter Additional Health Concerns Assessment Noted Time PHQ-9 Depression Total Score: 12 03/07/2021 3:13 PM CD T documented as of this encounter
--- OUTSIDE RECORDS SUMMARY | 2022-09-10 00:55 | XMS_ITS | Encounter Summary ---
:1990 Author Organization [facility] Address [address] [place] [address] Care Team Providers Name Role Phone Unavailable Primary Care Provider Unavailable Encounter Details Date Type Department Care Team Description 02/26/2021 Clinical Communication Department of Domingo Obstetrics and Yony So Gynecology in [address] [address] [place] [address] [facility] [phone] Social History Tobacco Use Types Packs/Day Years [...] How often do you attend jew or adventism services? Never 08/15/2022 Do you belong to [...] place to sleep or slept in a long term (including now)? Sex Assigned at Date Recorded Female 08/04/2021 7:52 PM CDT documented as of this encounter Miscellaneous Notes Telephone Encounter - Tasha Cerda R.N. - 02/28/2021 9:14 AM CDT Patient has been scheduled with Selina Locke today without hedis analyst. Telephone Encounter - Funmilayo Morales R.N. - 02/26/2021 4:45 PM CDT Left message to call back Telephone Encounter - Suzette Lao - 02/26/2021 4:37 PM CDT Patient is 23 weeks , would like to transfer care from [facility] and [facility]. Please advise [phone] documented in this encounter Plan of Treatment Upcoming Encounters Date Type Specialty Care Team Description 10/08/2022 Office Visit Obstetrics and Gynecology Kamini Lane M.D. [address] [place] [phone] (Wo rk) documented as of this encounter Visit Diagnoses Not on filedocumented in this encounter
--- OUTSIDE RECORDS SUMMARY | 2022-09-10 00:55 | XMS_ITS | Encounter Summary ---
:1990 Author Organization [facility] Address [address] [place] [address] Care Team Providers Name Role Phone Unavailable Primary Care Provider Unavailable Reason for Referral Outpatient (Routine) - Closed Specialty Diagnoses / Procedures Referred By Contact Refer red To Contact Obstetrics and Diagnoses Encounter For Supervision Of Normal First Unspecified Trimester (HCC) Depressive Disorder Anxiety Tobacco Use Colitis Ulcerative (HCC) Selina Locke [facility] Gynecology REEL WINDER, [place]. [address] [place] [address] Referral ID Status Reason Start Date Expiration Date Visits Requ ested Visits Authorized [id number] Closed 04/18/2021 04/18/2022 1 1 Scheduling Instructions 36wk ob utpatient (Routine) - Closed Specialty Diagnoses / Procedures Referred By Contact Refer red To Contact Obstetrics and Diagnoses Encounter For Supervision Of Normal First Unspecified Trimester (HCC) Depressive Disorder Anxiety Tobacco Use Colitis Ulcerative (HCC) Selina Locke [facility] Gynecology REEL WINDER, C.N.P. [address] [place] [phone] Referral ID Status Reason Start Date Expiration Date Visits Requ ested Visits Authorized [id number] Closed 04/18/2021 04/18/2022 1 1 Scheduling Instructions 34wk ob Reason for Visit Reason Comments Routine Visit Appointment Request (Routine) - Closed Specialty Diagnoses / Procedures Referred By Contact Refer red To Contact Obstetrics and Gynecology Referral ID Status Reason Start Date Expiration Date Visits Requ ested Visits Authorized [id number] Closed 04/03/2021 04/03/2022 1 1 Encounter Details Date Type Department Care Team Description 04/18/2021 Routine Department of Selina Locke For Supervision Of Normal First Unspecified Trimester (Primary Dx); Obstetrics and J, ANCELMO, C.N.P. Depressive Disorder; Gynecology in [address]; [place], [place] Tobacco Use; [address] [phone] Colitis Ulcerative (HCC) [place], [place] [phone] [address] (Work) [phone] Social History Tobacco Use Types Packs/Day Years [...] week 08/15/2022 How often do you attend taoism or temple services? Never 08/15/2022 Do you belong to any clubs or organizations such as No 08/15/2022 taoism groups, unions, fraternal or athletic groups, or [...] place to sleep or slept in a [facility] (including now)? Education Answer Date Recorded What is the highest level of school Bachelor's degree (e.g., BA, AB, 04/13/2021 you have completed or the highest BS) degree you have received? Sex Assigned at Date Recorded Female 08/04/2021 7:52 PM CDT documented as of this encounter Last Filed Vital Signs Vital Sign Reading Time Taken Comments Blood Pressure 102/62 04/18/2021 2:40 PM CDT Pulse - - Temperature - - Respiratory Rate - - Oxygen Saturation - - Inhaled Oxygen Concentration - - Weight 70.4 kg (155 lb 1.5 oz) 04/18/2021 2:40 PM CDT Height - - Body Mass Index 27.65 03/07/2021 2:46 PM CDT documented in this encounter Progress Notes Selina Locke, ANCELMO, C.N.P. - 04/18/2021 3:00 PM CDT OBJECTIVE PHYSICAL EXAM General: She is a well appearing female in no acute distress. HEENT: Hearing vision are grossly intact. Extremities: No peripheral edema edema bilaterally. ASSESSMENT / PLAN Bri Finch is a 31 y.o. female at 30w3d who presents for routine OB follow-up. #1 Encounter For Supervision Of Normal First Unspecified Trimester Overview: with [facility] 06/24/2021. Transfer of care from [place] at 24 weeks gestation. Have not received her medical records yet. Request sent. Instructed to follow up in 4 weeks with OBGYN RN for 28 week follow-up visit, labs, immunization, and Education. She would like to see Dr. 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 #2 Depressive Disorder Overview: Discontinued Lexapro due to decreased movement. Managing symptoms effectively with therapy. #3 Anxiety Overview: Discontinued Lexapro due to decreased movement. Managing symptoms effectively with therapy. #4 Tobacco Use Overview: 5-6 cig./day, and trying to quit. #5 Colitis Ulcerative (HCC) Overview: Under good control. Sees a ophthalmology surgical technician at [facility] for continued care. Other orders - Obstetrics and Gynecology office visit (clinic); Future; Expected date: 05/18/2021 - Obstetrics and Gynecology office visit (clinic); Future; Expected date: 05/29/2021 Followup: 05/07/[address] documented in this encounter Plan of Treatment Upcoming Encounters Date Type Specialty Care Team Description 10/08/2022 Office Visit Obstetrics and Gynecology Kamini Lane M.D. [address] [phone] (Wo rk) Scheduled Referrals Name Type Priority Associated Diagnoses Order S chedule Obstetrics and Outpatient Referral Routine Encounter For Expec reji: Gynecology office Supervision Of 05/18/20 21 visit (clinic) Normal First (Approximate) , Expires: Unspecified 04/18/2024 Trimester Depressive Disor raphael Anxiety Tobacco Use Colitis Ulcerative (HCC) Obstetrics and Outpatient Referral Routine Encounter For Expec reji: Gynecology office Supervision Of 05/29/20 21 visit (clinic) Normal First (Approximate) , Expires: Unspecified 04/18/2024 Trimester Depressive Disor raphael Anxiety Tobacco Use Colitis Ulcerative (HCC) documented as of this encounter Visit Diagnoses Diagnosis Encounter For Supervision Of Normal Firs t Unspecified Trimester (HCC) - Primary Depressive Disorder Anxiety Tobacco Use Colitis Ulcerative (HCC) documented in this encounter Additional Health Concerns Assessment Noted Time PHQ-9 Depression Total Score: 8 04/03/2021 3:31 PM CDT documented as of this encounter
--- OUTSIDE RECORDS SUMMARY | 2022-09-10 00:55 | XMS_ITS | Encounter Summary ---
:1990 Author Organization [facility] Address [address] [place] [address] Care Team Providers Name Role Phone Unavailable Primary Care Provider Unavailable Encounter Details Date Type Department Care Team Description 04/06/2021 Hospital Encounter Department of Vick Yee For Laboratory Medicine Yony Linda Supervision Of in [address] Normal First [place], [place] [address] [facility] [address] Unspecified [place], [place] [phone] [facility] [address] (Work) [phone] Social History Tobacco Use Types Packs/Day Years [...] How often do you attend amish or congregational services? Never 08/15/2022 Do you [...] place to sleep or slept in a skilled nursing (including now)? Sex Assigned at Date Recorded Female 08/04/2021 7:52 PM CDT documented as of this encounter Medications at Time of Discharge Medication Sig Dispensed Refills Start Date End Date escitalopram (LEXAPRO) 10 Take 1 tablet (10 30 tablet 1 06/05/2021 mg tabletIndications: mg total) by mouth Depressive Disorder, daily. (Start with Anxiety 1/2 tab daily for 7 days, then full tab daily.) omeprazole (PriLOSEC) 20 Take 1 capsule (20 30 capsule 2 08/19/[address] capsuleIndications: mg total) by mouth Heartburn daily. vitamin-iron Take 1 tablet by 0 08/19/2022 fumarate-FA 28 mg iron- mouth daily. 800 mcg per tablet documented as of this encounter Plan of Treatment Upcoming Encounters Date Type Specialty Care Team Description 10/08/2022 Office Visit Obstetrics and Gynecology Kamini Lane M.D. [address] [phone] (Wo rk) documented as of this encounter Procedures Procedure Name Priority Date/Time Associated Diagnosis Comme nts GLUCOSE TONIA, 3 HR, Routine 04/06/2021 9:12 AM Encounter For Re sults for this S/P CDT Supervision Of procedure are in Normal First the results section. Unspecified Trimester documented in this encounter Results Glucose Tolerance, 3 Hours (04/06/2021 9:12 AM CDT) [facility] Method Time Signature Glucose Tonia, 76 Not [...] Laterality Blood (Blood, 04/06/2021 9:12 AM 04/06/20 Venous) CDT 10:48 AM CDT Narrative [facility] [place] [facility] - 04/06/2021 1:49 PM CDT Specimen Information: Specimen ID: [id number] Specimen Type: Blood Specimen Collection Start Date: 04/06/20 ??9:12 AM Specimen Received Date: 04/06/2021 10:48 AM Specimen ID: [id number] Specimen Type: Blood Specimen Collection Start Date: 04/06/20 10:16 AM Specimen Received Date: 04/06/2021 ??1:2 7 PM Specimen ID: [id number] Specimen Type: Blood Specimen Collection Start Date: 04/06/20 11:16 AM Specimen Received Date: 04/06/2021 ??1:2 7 PM Specimen ID: [id number] Specimen Type: Blood Specimen Collection Start Date: 04/06/20 12:17 PM Specimen Received Date: 04/06/2021 ??1:2 7 PM Vick Yee M.D. LAB BLOOD NON ADD-ON Performing Organization Address City/State/ZIP Code Phon e Number [facility]- [address] [place] [address] [facility] [place] [address] System in [place] [address] documented in this encounter Visit Diagnoses Diagnosis Encounter For Supervision Of Normal Firs t Unspecified Trimester (HCC) documented in this encounter Additional Health Concerns Assessment Noted Time PHQ-9 Depression Total Score: 8 04/03/2021 3:31 PM CDT documented as of this encounter
--- OUTSIDE RECORDS SUMMARY | 2022-09-10 00:55 | XMS_ITS | Encounter Summary ---
:1990 Author Organization [facility] Address [address] [place] [address] Care Team Providers Name Role Phone Unavailable Primary Care Provider Unavailable Encounter Details Date Type Department Care Team Description 02/27/2021 Clinical Communication Department of [facility] and [facility] in [address] [place], [place] [address] [facility] [address] [place], [place] [phone] (Work) [phone] Social History Tobacco Use Types Packs/Day Years [...] How often do you attend hindu or religion services? Never 08/15/2022 Do you belong to [...] place to sleep or slept in a long-term (including now)? Sex Assigned at Date Recorded Female 08/04/2021 7:52 PM CDT documented as of this encounter Miscellaneous Notes Telephone Encounter - Sylvie Hu - 02/27/2021 1:26 PM CDT What is the purpose of the call?: Standard Appointment Process Standard Appointment Process Have you tested positive for COVID-19 in the last 20 days OR do you have a pending COVID-19 test because you had symptoms?: No, neither apply What region is the appointment being requested?: Less than 14 days [place] In the past 14 days are any of the following symptoms new to you and not related to an existing health condition?: No symptoms noted In the past 14 days have you had close contact* with a person who has a LABORATORY CONFIRMED case ofCOVID-19?: No exposure noted, follow appt process (End Screening) Testing Recommendation Endpoint Is testing recommended? : Not recommended to test Plan: Endpoint recommendation: Followed regional OTG *Reminder if sending patient for testing in [facility] or [facility], route encounter to the correct testing pool. documented in this encounter Plan of Treatment Upcoming Encounters Date Type Specialty Care Team Description 10/08/2022 Office Visit Obstetrics and Gynecology Kamini Lane M.D. [address] [place], [place] [phone] (Wo rk) documented as of this encounter Visit Diagnoses Not on filedocumented in this encounter
[2022-09-10 00:58] LABS: Slide Review Reflex No
[2022-09-10 01:09] LABS: Albumin* 4.6 g/dL (3.3-5.0); Chloride* 109 mmol/L (96-114); Sodium* 144 mmol/L (135-149)
[2022-09-10 01:10] LABS: Potassium* 3.6 mmol/L (3.6-5.1)
[2022-09-10 01:12] LABS: Alanine Aminotransferase* 21 U/L (4-35); Alkaline Phosphatase* 75 U/L (40-150); Aspartate Amino Transferase* 24 U/L (12-35); Bilirubin Total* 0.2 mg/dL (0.1-1.5); Blood Urea Nitrogen* 11 mg/dL (5-24); Carbon Dioxide* 21 mmol/L (20-32); Glucose* 110 mg/dL (60-115); Lipase* 81 U/L (23-300); Total Protein* 7.7 g/dL (6.0-8.3)
[2022-09-10 01:23] LABS: Creatinine* 0.7 mg/dL (0.5-1.5); Estimated Glomerular Filt Rate 119 ml/min
[2022-09-10 01:33] LABS: PCR FLU A Negative PCR FLU A (Negative); PCR FLU B Negative PCR FLU B (Negative); PCR RSV Negative PCR RSV (Negative)
[2022-09-10 01:35] LABS: SARS PCR* Negative SARS-CoV-2 (Negative)
[2022-09-10 02:27] LABS: Appearance Urine Clear (Clear); Bilirubin Urine Negative (Negative); Blood Urine Negative (Negative); Color Urine Yellow (Yellow); Glucose Urine Negative (Negative); Ketones Urine Negative (Negative); Leukocyte Esterase Urine 1+ (Negative); Nitrite Urine Negative (Negative); Protein Urine Negative (Negative); Urobilinogen Urine 0.2 (0.2-1.0)
[2022-09-10 02:54] LABS: Amorphous Sediment Urine Few; Bacteria Urine Moderate; HCG Qualitative* Negative (Negative); RBC Urine 0-2 (0-2); Squamous Epithelial Cell Urine Few (None-Few)
== END 2022-09-10 03:08 | disposition home or self-care (01) ==
PROVIDERS: Emergency Provider Family Medicine; PCP Family Medicine
DX: K80.20 Calculus of gallbladder without cholecystitis without obstruction (principal); F17.210 Nicotine dependence, cigarettes, uncomplicated; Z20.822 Contact with and (suspected) exposure to COVID-19
CPT/HCPCS: 36415; 76705; 80053; 81003; 81015; 83690; 84703; 85025; 86140; 87086; 87502; 87634; 87635; 96374; 96375; 99283; 99284; J1170; J2405

== ENCOUNTER 2023-02-13 12:10 | Day surgery (SDC) | payer MEDICAID, SELFPAY ==
[2023-02-13] VITALS (11 sets, daily range): BP systolic 131–140; BP diastolic 65–89; PULSE 86–127; RESP 14–18; TEMP 36.9–37.3; O2SAT 96–99; BMI 26.5
--- NOTE | 2023-02-13 13:19 | ED.GENADULT ---
HPI - General Adult General Chief complaint: Post Op Complication Stated complaint: Post op bleeding, blood clots Time Seen by Provider: 02/13/23 12:12 History of Present Illness HPI narrative: This 32-year-old female comes in reporting vaginal bleeding. She had a LEEP procedure done at [place] [address] this morning. She was discharged with no significant bleeding. After she arrived at home she started to bleed heavily stating that a pad lasted about 20 minutes. She is currently using a diaper and has had to change it 4 times. She states that she did call back to [place] [address] and was told to come into the ER. She does not report any lightheadedness or shortness of breath. She does arrive with normal vital signs. Related Data Home Medications Medication Instructions Recorded Confirmed cholecalciferol (vitamin D3) 125 125 mcg PO QDAY 09/10/22 02/13/23 mcg (5,000 unit) capsule medroxyprogesterone 150 mg/mL 150 mg IM [id number] 09/10/22 02/13/23 intramuscular suspension (Depo-Provera) Previous Rx's Medication Instructions Recorded fluoxetine 40 mg capsule 40 mg PO QDAY #30 caps 09/10/22 hydroxyzine HCl 50 mg tablet 50 mg PO QHS PRN anxiety #30 tabs 09/10/22 propranolol 10 mg tablet 10 mg PO BID PRN anxiety #30 tabs 09/10/22 Allergies Allergy/AdvReac Type Severity Reaction Status Date / Time No Known Drug Allergies Allergy Verified 02/13/23 12:23 Review of Systems Status of ROS: Reports: 10 or more systems reviewed and unremarkable except as noted in History and below Narrative: Constitutional: No fevers, no weight gain or loss. Eyes: No discharge. No vision changes. HENT: No congestion, no sore throat, no ear pain. Cardiovascular: No chest pain, no palpitations. Respiratory: No shortness of breath, no wheezes, no cough. Gastrointestinal: No abdominal pain, no vomiting, no diarrhea. Genitourinary: No dysuria. Vaginal bleeding status post LEEP procedure. Musculoskeletal: Normal range of motion. Skin: No rashes, no pruritis. Neurological: No dizziness, weakness, sensory change, speech change. Endo/Heme/Allergies: No bruising or bleeding. No polydipsia. Pysch: no suicidality, no anxiety, no insomnia. All other systems reviewed and are negative. PFSH PFSH Medical History (Updated 02/13/23 @ 14:15 by Donell Palafox MD) Depression with anxiety ?F41.8 - Other specified anxiety disorders (ICD-10) ?Z34.90 - Encounter for supervision of normal , unspecified, unspecified trimester (ICD-10) Surgical History (Updated 09/10/22 @ 14:35 by Rock Rey MD) History of mandibular surgery ?Z98.890 - Other specified postprocedural states (ICD-10) Social History Smoking Status: Current every day smoker What tobacco products do you use: cigarettes How often do you have a drink containing alcohol: never AUDIT-C Alcohol total score: 0 Non-prescribed substance use: denies use Little interest or pleasure in doing things: more than half the days Feeling down, depressed, or hopeless: several days Exam Narrative: Exam Narrative: Constitutional: Well-developed, well-nourished, no acute distress. HEENT: Normocephalic, atraumatic. Neck: Normal range of motion. Nontender. Supple. Heart: Regular. No murmurs. Normal rate. Intact distal pulses. Lungs: Clear to auscultation. No chest discomfort. No wheezes, rhonchi, or rales. Abdomen: Normal bowel sounds. Nontender. No rebound tenderness. Back: No midline tenderness. Normal range of motion. Extremities: Normal range of motion. No injury. Skin: Intact. No rash. Warm. No erythema or pallor. Neurologic: No altered sensation. No weakness. Alert and oriented. Psychiatric: No suicidality. No anxiety or depression. No insomnia. Nursing notes and vitals signs are reviewed. Const: Vital Signs, click to edit/add: Vital Signs - 24 hr 02/13/23 12:24 Temperature 98.5 F Pulse Rate [Pulse Oximeter] 86 Respiratory Rate 16 Blood Pressure [Ri ght Upper Arm] 131/78 Pulse Oximetry 96 Oxygen Delivery Me thod Room Air Course Vital Signs Vital signs: Initial Vital Signs Temperature 98.5 F 02/13/23 12:24 Temperature Source Temporal Artery Scan 02/13/23 12:24 Pulse Rate 86 02/13/23 12:24 Respiratory Rate 16 02/13/23 12:24 Blood Pressure 131/78 02/13/23 12:24 Blood Pressure Mean 95 02/13/23 12:24 Blood Pressure Position Sitting 02/13/23 12:24 Pulse Oximetry 96 02/13/23 12:24 Oxygen Delivery Method Room Air 02/13/23 12:24 Vital Signs Temperature 98.5 F 02/13/23 12:24 Pulse Rate 86 02/13/23 12:24 Respiratory Rate 16 02/13/23 12:24 Blood Pressure 131/78 02/13/23 12:24 Pulse Oximetry 96 02/13/23 12:24 Oxygen Delivery Method Room Air 02/13/23 12:24 Temperature 98.5 F 02/13/23 12:24 Pulse Rate 86 02/13/23 12:24 Respiratory Rate 16 02/13/23 12:24 Blood Pressure 131/78 02/13/23 12:24 Pulse Oximetry 96 02/13/23 12:24 Oxygen Delivery Method Room Air 02/13/23 12:24 Medical Decision Making MDM Narrative Medical decision making narrative: This patient comes in with vaginal bleeding status post LEEP procedure done this morning. An IV was established and a L of normal saline was administered. I did speak with the OBGYN physician on-call who will come to further evaluate and treat. This patient's hemoglobin returns at around 12. She is maintaining normal vital signs. The plan is to take her to the operating room for suture repair of the cervical bleed status post LEEP procedure. Lab Data Labs: Lab Results 02/13/23 Range/Units 13:25 WBC 11.03 H (4.50-11.00) K/uL RBC 4.52 (4.00-5.20) m/uL Hgb 12.9 (12.0-16.0) gm/dL Hct 38.2 (33.0-51.0) % MCV 85 (80-100) fL MCH 29 (26-34) pg MCHC 34 (32-36) gm/dL RDW Coeff of Luis Enrique 12.5 (11.5-15.5) % Plt Count 418 (140-440) K/uL Neut % (Auto) 90.0 H (42.0-72.0) % Lymph % (Auto) 7.9 L (20-44) % Williamson % (Auto) 0.8 (0.0-11.0) % Eos % (Auto) 0.0 (0.0-7.0) % Baso % (Auto) 0.0 (0.0-3.0) % Neut # (Auto) 9.90 H (1.7-7.0) K/uL Lymph # (Auto) 0.90 (0.90-2.90) K/uL Williamson # (Auto) 0.10 (0.00-0.90) K/UL Eos # (Auto) 0.00 (0.00-0.50) K/uL Baso # (Auto) 0.00 (0.00-0.30) K/uL Discharge Plan Discharge Clinical Impression: Vaginal bleeding Patient Disposition: XFER to OR Condition: Unchanged Follow Up/Referrals: Rock Rey MD [Primary Care Provider] -
[2023-02-13] MEDS: 0.9 % SODIUM CHLORIDE 1000 ml 1,000 ML IV (13:34)
[2023-02-13 13:52] LABS: Hematocrit 38.2 % (33.0-51.0); Hemoglobin* 12.9 gm/dL (12.0-16.0); Immature Granulocytes Pct Auto 1.3 %; Lymphocytes Percent Auto 7.9 % (20-44); Mean Corpuscular HGB Conc 34 gm/dL (32-36); Mean Corpuscular Hemoglobin 29 pg (26-34); Mean Corpuscular Volume 85 fL (80-100); Monocytes Percent Auto 0.8 % (0.0-11.0); Platelet Count* 418 K/uL (140-440); RDW Coefficient of Variation % 12.5 % (11.5-15.5); Red Blood Count 4.52 m/uL (4.00-5.20); White Blood Count* 11.03 K/uL (4.50-11.00)
[2023-02-13 14:03] LABS: Slide Review Reflex No
--- NOTE | 2023-02-13 14:14 | P.PCN_ITS ---
Procedure Note Time Seen by Provider: 14:14 Date Seen: 02/13/23 Will [facility] bill your pro fee for this procedure?: Yes Procedure: Preoperative diagnosis: 32-year-old , postop from a LEEP performed this morning at [address] presented to the emergency department with hemorrhage from the LEEP biopsy site. Postop diagnosis: Same Procedure: Exam under anesthesia, repair of LEEP biopsy site to obtain hemostasis Anesthesia: General endotracheal, paracervical block Surgeon: Cydney Pascual MD Lab Aid: Not applicable IV Fluid: 800 mL Estimated blood loss: 30 mL. (>300mL in the ED) Specimen: None Indication: Bri underwent a LEEP procedure at [address] at 7:30 a.m. this morning. The procedure was performed by Dr. Boss. Patient states that she started having heavy [facility]. She and her boyfriend, Bia, went home and called the clinic and they recommended that the patient go to the emergency room?. She came to the [facility] emergency room because it was closer to her home than [place] [address]. She has been passing large clots. I attempted to control the bleeding in the emergency department using Monsel's solution without success so recommended she be taken to the operating room to repair the LEEP biopsy site and obtain hemostasis. Findings: On exam under anesthesia: Moderate amount of vaginal bleeding. The bleeding has slowed from the emergency department but still an excessive amount from the of the LEEP biopsy. No vaginal abnormalities were identified no masses noted. Procedure: Bri was taken to the operating room where general anesthesia was found be adequate. She is placed in the dorsal lithotomy position in an exam under anesthesia was performed with findings stated above. She was then prepped and draped in a normal sterile manner. She emptied her bladder prior to being taken to the operating room. A weighted speculum was placed in the posterior vaginal canal and a Chelsea retractor was used to retract the anterior vaginal tissue. Two stay sutures of 0-Vicryl were placed, 1 at the 3 o'clock and 1 at the 9 o'clock position on the cervix. Another 0-Vicryl suture was placed in a 1/2 pursestring style with the needle going in at the 3 o'clock position, out at 12:00 p.m. then back in at 12:00 p.m. and out at the 9 o'clock position. A 4th 0 Vicryl suture was placed in a similar 1/2 pursestring manner in the posterior aspect of the cervix. Again with 1 suture remaining at the 3 clock position and another suture out at the 9 o'clock position. The 2 9:00 a.m. sutures were tied to each other behind the 9:00 a.m. stay suture. The other sutures were tied at the 3 o'clock position behind the 3:00 a.m. stay suture. All of the sutures were then cut. Hemostasis was verified. Nothing additional was needed to obtain hemostasis. Sponge, lap and instrument counts were correct x2 at the end of the procedure. The patient was awakened from anesthesia and the patient was taken to the recovery room in stable condition. She received 2 g of IV Ancef prior to the start of the procedure. Anesthesia: GETA
[2023-02-13] MEDS: CEFAZOLIN 2 GM INJ IVP ×2 (14:27→14:45)
[2023-02-13] MEDS: LACTATED RINGERS 1000 ML 1,000 ML 100 ML IV (14:40)
--- NOTE | 2023-02-13 14:46 | ED.NURSE ---
Patient had exam here in ER, needed to be taken to OR for exam under anesthesia. Consent form reviewed with patient by attending surgeon. Preop antibiotics administered here in the ER.
--- NOTE | 2023-02-13 15:33 | W.ANESCHARGE ---
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
[2023-02-13] MEDS: MEPERIDINE 25 MG/ML INJ 12.5 MG IVP (15:38)
== END 2023-02-13 16:34 | disposition home or self-care (01) ==
LOC: ED 14:15 → SS 14:21
PROVIDERS: Emergency Provider Emergency Medicine Emergency Medical Services; PCP Family Medicine; Visit Provider Obstetrics & Gynecology
PROC: 0UQG0ZZ Repair Vagina, Open Approach (ICD-10-PCS; CPT 57720; principal; 2023-02-13 14:00)
DX: N99.820 Postprocedural hemorrhage of a genitourinary system organ or structure following a genitourinary system procedure (principal)
CPT/HCPCS: 57720; 00940; 36415; 81025; 85025; 86850; 86900; 86901; 99140; 99284; J0330; J0690; J1100; J1885; J2175; J2405; J2704; J3010; J7030; J7120